=== PATIENT | female | born 1965 | race Caucasian/White ===

== ENCOUNTER 2019-11-05 19:01 | Emergency (ER) | payer BC, OTHER, SELFPAY ==
[2019-11-05 19:09] VITALS: BP 143/82; PULSE 50; RESP 18; TEMP 36.7; O2SAT 100
--- NOTE | 2019-11-05 19:37 | ED.GENADULT ---
HPI - General Adult General Chief complaint: Animal Bite Stated complaint: mouse bite Time Seen by Provider: 11/05/19 19:26 Source: patient Mode of arrival: ambulatory Limitations: no limitations History of Present Illness HPI narrative: 54-year-old female patient presents to the emergency department with complaints of a mouse bite to her left index finger. Patient states that she was in the barn tending to her horse and noticed that the mass had gotten into his bucket. Patient states that she tried to grab the mouse by the tail and it bit her through her glove. Patient states she has a small little bite on the left index finger. Denies any history of diabetes. Denies any chest pain, shortness of breath, fevers, body aches or chills. Patient unaware of when her last tetanus shot was. Related Data Home Medications Medication Instructions Recorded Confirmed gabapentin 300 mg PO BID 03/06/19 03/06/19 levetiracetam [Keppra] 1,000 mg PO BID 03/06/19 03/06/19 Allergies Allergy/AdvReac Type Severity Reaction Status Date / Time No Known Allergies Allergy Verified 11/05/19 19:12 Review of Systems Review of Systems: Narrative: CONSTITUTIONAL: Denies fever, chills, or sweats. EYES: Denies visual changes, redness, or discharge. ENT: Denies rhinorrhea, congestion, sore throat, or otalgia. CARDIOVASCULAR: Denies chest pain, palpitations, or edema. RESPIRATORY: Denies cough or dyspnea. GASTROINTESTINAL: Denies abdominal pain, nausea, vomiting, or diarrhea. GENITOURINARY: Denies dysuria or hematuria. SKIN: Denies rash or itching. Positive mouse bite to left index finger MUSCULOSKELETAL: Denies back pain, joint pain, or myalgia. NEUROLOGIC: Denies headache, numbness, or weakness. PSYCHIATRIC: Denies anxiety or depression. PMFSH Comments At the time of my signature I agree with nursing past medical history, surgical, social, and family history. There is no relevant family history pertinent to the presenting complaint. Exam Narrative: Exam Narrative: GENERAL: Well-appearing, well-nourished, and in no acute distress. HEAD: Normocephalic, atraumatic. EYES: PERRLA and EOMI. ENT: Nares clear, no rhinorrhea or epistaxis. Mucous membranes moist. NECK: Supple. No lymphadenopathy CHEST: Clear to auscultation. No respiratory distress. HEART: Regular rate and rhythm. No murmur heard. Normal peripheral pulses. ABDOMEN: Soft, nontender, nondistended, normal active bowel sounds. EXTREMITIES: Normal range of motion. No edema. SKIN: Warm, dry, no rash. Patient has very tiny pinpoint bite marialuisa noted to the left index finger, distal on the palm side. No open wounds or drainage. No swelling, no surrounding erythema. NEURO: No focal deficits. Alert and oriented x3. Course Vital Signs Vital signs: Vital Signs Temperature 36.7 C 11/05/19 19:09 Pulse Rate 50 L 11/05/19 19:09 Respiratory Rate 18 11/05/19 19:09 Blood Pressure 143/82 H 11/05/19 19:09 Pulse Oximetry 100 11/05/19 19:09 Temperature 36.7 C 11/05/19 19:09 Pulse Rate 50 L 11/05/19 19:09 Respiratory Rate 18 11/05/19 19:09 Blood Pressure 143/82 H 11/05/19 19:09 Pulse Oximetry 100 11/05/19 19:09 Vital signs reviewed. The patient has been informed that they may have pre-hypertension or Hypertension based on a BP reading in the department. I recommend that the patient call the primary care provider listed on their discharge instructions or a physician of their choice this week to arrange follow up for further evaluation of possible pre-hypertension or Hypertension Medical Decision Making Differential Diagnosis Differential Diagnosis: Differential diagnosis: Abscess, cellulitis, hidradenitis, laceration, puncture wound. Discussed with patient we will go ahead and update her tetanus shot today. According to up-to-date mouse are really low risk for rabies and therefore I do not think that we need to start prophylactics rabies shots today however we will disch
[2019-11-05] MEDS: AMOXICILLIN/CLAVULANATE K 875-125 MG TAB 1 TABLET PO (20:08)
[2019-11-05] MEDS: TETANUS,DIPHTHERIA,AC PERTUSSIS ADULT (0.5 ML) BOOSTRIX IM (20:08)
[2019-11-05 20:15] VITALS: BP 132/87; PULSE 56; RESP 18; O2SAT 99
== END 2019-11-05 20:16 | disposition home or self-care (01) ==
PROVIDERS: Emergency Provider Nurse Practitioner Family
DX: S61.251A Open bite of left index finger without damage to nail, initial encounter (principal); W53.01XA Bitten by mouse, initial encounter; Z23 Encounter for immunization; R03.0 Elevated blood-pressure reading, without diagnosis of hypertension
CPT/HCPCS: 90471; 90715; 99283; A9270

== ENCOUNTER 2019-12-09 22:35 | Emergency (ER) | payer BC, OTHER, SELFPAY ==
--- NOTE | ~2019-12-09 | XR_ITS ---
XR hip RT 2V w AP pelvis DATE: 12/09/2019 23:31 INDICATION: Right hip pain since fall 1.5 weeks ago TECHNIQUE: AP pelvis. AP, lateral views of right hip COMPARISON: None FINDINGS: Levoscoliosis and degenerative change of the lumbar spine. The pubic symphysis and sacroiliac joints are intact. No pelvic fracture or bone destruction. The hip joint spaces are symmetric and preserved. No fracture, dislocation, avascular necrosis or bone destruction of the right hip. There is a prominent amount of fecal material within the colon. No bowel obstruction. IMPRESSION: No significant abnormality of the pelvis or right hip Levoscoliosis and degenerative change of lumbar spine Reviewed, dictated and finalized at location A.
[2019-12-09 22:39] VITALS: BP 149/76; PULSE 61; RESP 18; TEMP 36.7; O2SAT 98
[2019-12-09 22:43] VITALS: BP 149/76; PULSE 63; RESP 18; O2SAT 99
--- NOTE | 2019-12-09 23:11 | ED.FALL ---
HPI - Fall General Chief Complaint: Fall Stated Complaint: fall week ago, continued pain Time Seen by Provider: 12/09/19 22:48 Source: patient Mode of arrival: ambulatory Limitations: no limitations History of Present Illness HPI Narrative: This patient is a 54 year old female who presents for evaluation of right buttock s/p fall. She states she fell 1.5 weeks ago. She fell onto her buttock. She states she has had pain to right posterior hip so she went to see her chiropractor yesterday. After he performed a manipulation , her pain seems worse. She is taking ibuprofe for her pain. She denies abdominal pain, nausea, vomiting, or fever. She has right leg weaknes from a previous stroke. Related Data Home Medications Medication Instructions Recorded Confirmed gabapentin 300 mg PO BID 03/06/19 03/06/19 levetiracetam [Keppra] 1,000 mg PO BID 03/06/19 03/06/19 Allergies Allergy/AdvReac Type Severity Reaction Status Date / Time No Known Allergies Allergy Verified 12/09/19 22:43 Review of Systems Review of Systems: All systems reviewed & are unremarkable except as noted in HPI and below Constitutional: Constitutional: Denies chills and Denies fever(s) [facility] Past Medical History Medical History (Updated 12/10/19 @ 00:38 by Taylor Krishnamurthy MD) Traumatic brain injury Social History Social History Gender identity (if verbalized by the patient): Female Sexual Orientation (if Verbalized by the Patient): Straight or Heterosexual Exam Const: General: no acute distress and alert Orientation/consciousness: patient oriented x3 HENMT: Head: normocephalic and atraumatic Face and sinus: face symmetric Eyes: EOM: EOMs intact bilaterally Resp: Effort & Inspection: normal respiratory effort Neuro: General: patient oriented x3 and moves all extremities Other: right foot droop from and right arm contracture from previous tbi/stroke. Extrem: Other: no bruising or swelling , FROM at hip. neurovascular intact Psych: Mental Status: mental status grossly normal Affect: normal affect Course Vital Signs Vital signs: Vital Signs Temperature 98.1 F 12/09/19 22:39 Pulse Rate 61 12/09/19 22:39 Respiratory Rate 18 12/09/19 22:39 Blood Pressure 149/76 H 12/09/19 22:39 Pulse Oximetry 98 12/09/19 22:39 Temperature 98.1 F 12/09/19 22:39 Pulse Rate 63 12/09/19 22:43 Respiratory Rate 18 12/09/19 22:43 Blood Pressure 149/76 H 12/09/19 22:43 Pulse Oximetry 99 12/09/19 22:43 MDM - Fall Imaging Data Radiologist's impression: ITS Impressions Hip/Pelvis X-Ray 12/09/19 23:42 IMPRESSION: No significant abnormality of the pelvis or right hip Levoscoliosis and degenerative change of lumbar spine Discharge Plan Discharge Clinical Impression: Acute pain of right hip Patient Disposition: Home, Self-Care Condition: Stable Instructions: Antibiotic Form, Hip Contusion (ED) Additional Instructions: Follow up with your primary care physician if your pain does not improve. Prescriptions: New naproxen 500 mg tablet 500 mg PO BID PRN (Reason: pain) Qty: 10 RF: 0 hydrocodone-acetaminophen [[place]] 5-325 mg tablet 1 tablet PO Q6H PRN (Reason: pain) Qty: 6 RF: 0 No Action gabapentin 300 mg Capsule 300 mg PO BID RF: 0 levetiracetam [Keppra] 1,000 mg Tablet 1,000 mg PO BID RF: 0 amoxicillin-pot clavulanate [Augmentin] 875-125 mg tablet 1 tablet PO Q12H 7 Days Qty: 14 RF: 0 Follow-up/Referrals: Johnna,Wilver Jacobs MD [Primary Care Provider] - Discharge Date/Time: 12/10/19 00:45
--- NOTE | 2019-12-09 23:18 | PC.NURSE ---
Report received from HEMANT Dumont. Assumed care of patient at this time.
--- NOTE | 2019-12-09 23:29 | PC.NURSE ---
Patient in radiology at this time.
== END 2019-12-10 00:45 | disposition home or self-care (01) ==
PROVIDERS: Emergency Provider General Practice; PCP Internal Medicine
DX: M25.551 Pain in right hip (principal); Z87.820 Personal history of traumatic brain injury
CPT/HCPCS: 73502; 99283

== ENCOUNTER 2019-12-29 12:34 | Outpatient (CLI) | payer BC, SELFPAY ==
--- NOTE | ~2019-12-29 | XR_ITS ---
EXAMINATION: SACRUM/COCCYX DATE: 12/29/2019 13:32 INDICATION: Low back pain TECHNIQUE: Three views sacrum/coccyx FINDINGS: No prior studies for comparison. There is no displaced fracture of the sacrum. The coccyx demonstrates overall normal morphology with out acute angulation. IMPRESSION: 1. No acute displaced osseous abnormality of the sacrum. Suspicion for occult or nondisplaced sacral fracture can either be evaluated with CT or MRI. 2. Grossly normal morphology to the coccyx without acute angulation. However, due to the wide range of normal variation of the coccyx, acute injury would be best evaluated by clinical examination and patient's symptoms. Reviewed, dictated and finalized at location A.
--- NOTE | ~2019-12-29 | XR_ITS ---
XR lumbar spine 2-3V 12/29/2019 13:32 Indication: Low back pain Procedure: 3 views lumbar spine Comparison: No prior studies for comparison. Findings: There is levoscoliosis. No acute fracture or traumatic malalignment. There is mild lower freida mbar facet hypertrophy. No evidence for spondylolisthesis. Sacral foramen are symmetric. Impression: 1: Mild lumbar spondylosis with levoscoliosis. Reviewed, dictated and finalized at location A. Impression: 1: Mild lumbar spondylosis with levoscoliosis.
--- NOTE | ~2019-12-29 | XR_ITS ---
XR pelvis 1-2V 12/29/2019 13:32 Indication: Pelvic pain after fall Procedure: AP pelvis Comparison: No prior studies for comparison. Findings: Pelvic rings are intact. No acute fracture or traumatic malalignment. Sacral foramen are sy mmetric. No soft tissue abnormality. Impression: 1: No acute fracture. Reviewed, dictated and finalized at location A. Impression: 1: No acute fracture.
== END 2019-12-29 12:35 ==
DX: R10.2 Pelvic and perineal pain (principal); M47.896 Other spondylosis, lumbar region
CPT/HCPCS: 72100; 72170; 72220

== ENCOUNTER 2020-03-04 13:36 | Emergency (ER) | payer BC, OTHER, SELFPAY ==
--- NOTE | ~2020-03-04 | US_ITS ---
EXAMINATION: US venous doppler [facility] DATE: 03/04/2020 15:24 INDICATION: Left groin pain. TECHNIQUE: Grayscale ultrasound images without and with compression and Doppler ultrasound images of the bilateral lower extremity veins were obtained. COMPARISON: None. FINDINGS: The visualized portions of right common femoral vein, profunda (deep) femoral vein, femoral vein, pop liteal vein, peroneal veins, posterior tibial veins, and greater saphenous vein outflow are patent. The visualized portions of left common femoral vein, profunda femoral vein, femoral vein, popliteal v ein, peroneal veins, posterior tibial veins, and greater saphenous vein outflow are patent. IMPRESSION: 1. No deep venous thrombosis. Reviewed, dictated and finalized at location A. LY DEVELOPMENT EXTENSION SPECIALIST
--- NOTE | ~2020-03-04 | XR_ITS ---
EXAMINATION: XR pelvis 1-2V DATE: 03/04/2020 16:19 INDICATION: Right groin pain. TECHNIQUE: A single view of the pelvis was obtained. COMPARISON: Pelvis radiograph 12/29/2019 FINDINGS: There is levoscoliosis and mild spondylosis of lumbar spine. No fracture. There is mild ost eoarthritis of the hips. IMPRESSION: 1. Mild osteoarthritis of the hips. Reviewed, dictated and finalized at location A. NICAL PRODUCER
[2020-03-04 13:39] VITALS: BP 124/89; PULSE 74; RESP 18; TEMP 36.3; O2SAT 99
[2020-03-04 14:46] LABS: Basophils Percent Auto 0.3 % (0.2-1.2); Eosinophils Absolute Auto 0.1 K/mm3 (0-0.3); Eosinophils Percent Auto 0.6 % (0-4.4); Hematocrit 39.4 % (37.0-47.0); Hemoglobin 12.9 g/dL (12.0-15.0); Immature Granulocyte Absolute 0.04 K/mm3 (0.00-0.031); Immature Granulocyte Percent A 0.4 % (0-0.5); Lymphocytes Absolute Auto 2.19 K/mm3 (0.9-3.2); Lymphocytes Percent Auto 24.4 % (18.3-44.2); Mean Corpuscular HGB Conc 32.7 g/dl (32-36); Mean Corpuscular Hemoglobin 29.7 pg (26-34); Mean Corpuscular Volume 90.8 fl (80-100); Monocytes Absolute Auto 0.6 K/mm3 (0.1-0.6); Neutrophils Percent Auto 67.3 % (45.5-73.1); Platelet Count Result 215 k/mm3 (150-375); Red Blood Count 4.34 M/mm3 (4.2-5.4); Red Cell Distribution Width 12.7 % (11.5-14.5)
[2020-03-04 14:49] LABS: Prothrombin Time 13.6 Seconds (11.1-14.7)
[2020-03-04 14:50] LABS: Partial Thromboplastin Time 25.5 SECONDS (22.3-36.8)
[2020-03-04 15:07] LABS: Anion Gap 7 mmol/L (8-16); Blood Urea Nitrogen 13 mg/dL (7-17); Calcium 9.5 mg/dL (8.4-10.2); Carbon Dioxide 31 mmol/L (22-30); Chloride 103 mmol/L (98-107); Estimated CRCL calculation 90 ml/min; Estimated Glomerular Filt Rate > 60; Glucose 94 mg/dL (65-105); Sodium 141 mmol/L (137-145)
[2020-03-04 15:12] LABS: Potassium 3.4 mmol/L (3.4-5.0)
[2020-03-04 16:26] VITALS: BP 150/94; PULSE 60; RESP 20; O2SAT 100
[2020-03-04 16:26] LABS: Add Urine Microscopic? YES; Appearance Urine Clear (Clear); Bacteria Urine Trace /hpf; Bilirubin Urine Negative (Negative); Blood Urine Negative (Negative); Color Urine Straw (Yellow); Glucose Urine UA Negative (Negative); Ketones Urine Negative (Negative); Leukocyte Esterase Ur Trace LEU/UL (Negative); Nitrate Urine Negative (Negative); Protein Urine Negative (Negative); RBC Urine 0-2 /hpf (0-2); Specific Grav Ur 1.012 (1.001-1.035); Squamous Epithelial Cell Urine Occasional /hpf (Few); Urobilinogen Urine Negative mg/dL (<2.0); WBC Urine 0-3 /hpf
--- NOTE | 2020-03-04 16:26 | ED.GENADULT ---
HPI - General Adult General Chief complaint: Extremity Injury, Lower <Kaushik Freeman PA-C - Last Filed: 03/04/20 16:31> Stated complaint: groin injury <Kaushik Freeman PA-C - Last Filed: 03/04/20 16:31> Time Seen by Provider: 03/04/20 13:41 <Kausihk Freeman PA-C - Last Filed: 03/04/20 16:31> Source: patient <LING Elmore Last Filed: 03/04/20 16:31> Mode of arrival: ambulatory <Kaushik Freeman PA-C - Last Filed: 03/04/20 16:31> Limitations: no limitations <Kaushik Freeman PA-C - Last Filed: 03/04/20 16:31> History of Present Illness HPI narrative: Patient is a 55-year-old female who presents to emergency department for evaluation of left inner groin pain for 2 weeks denies injury or trauma but does have physical requirements at home taking care of animals and a family member that could have potentially caused a strain pain has remained constant has remained in the same region does not radiate is worse with weightbearing and activity has not been seen for this complaint presents in no distress <Kaushik Freeman PA-C - Last Filed: 03/04/20 16:31> Related Data Home medications: Home Medications Medication Instructions Recorded Confirmed gabapentin 300 mg PO BID 03/06/19 03/06/19 levetiracetam [Keppra] 1,000 mg PO BID 03/06/19 03/06/19 cyclobenzaprine mg 03/04/20 methylprednisolone mg 03/04/20 <Kaushik Freeman PA-C - Last Filed: 03/04/20 16:31> Allergies/adverse reactions: Allergies Allergy/AdvReac Type Severity Reaction Status Date / Time No Known Allergies Allergy Verified 03/04/20 13:42 <Kaushik Freeman PA-C - Last Filed: 03/04/20 16:31> Review of Systems Review of Systems: All systems reviewed & are unremarkable except as noted in HPI and below <Kaushik Freeman PA-C - Last Filed: 03/04/20 16:31> PMFSH Past Medical History Medical History: Medical History Traumatic brain injury <Kaushik Freeman PA-C - Last Filed: 03/04/20 16:31> Social History Social History: Social History Gender identity (if verbalized by the patient): Female <Kaushik Freeman PA-C - Last Filed: 03/04/20 16:31> Exam Narrative: Exam Narrative: GENERAL: Well-appearing, well-nourished, and in no acute distress. HEAD: Normocephalic, atraumatic. EYES: PERRLA and EOMI. ENT: Nares clear, no rhinorrhea or epistaxis. Mucous membranes moist. CHEST: Clear to auscultation. No respiratory distress. No wheezes rales or rhonchi HEART: Regular rate and rhythm. No murmur heard. Normal peripheral pulses. ABDOMEN: Soft, nontender, nondistended EXTREMITIES: Normal range of motion. No edema. Tenderness of the left groin remainder of extremities nontender. No lumbar tenderness to palpation SKIN: Warm, dry, no rash. NEURO: No focal deficits. Alert and oriented x3. Neurovascularly intact. Cranial nerves II through XII grossly intact. Normal speech. Motor and sensory intact and symmetrical in the extremities. Chronic disability on the right side secondary to prior CVA PSYCH: Normal mood and affect. <Kaushik Freeman PA-C - Last Filed: 03/04/20 16:31> Course Course Emergency Course: Patient in the room in no distress was given medications in the ER had evaluation will be discharged home with plan follow-up with primary care and her orthopedist felt appropriate for outpatient reevaluation patient's evaluation included blood work and imaging <Kaushik Freeman PA-C - Last Filed: 03/04/20 16:31> Vital Signs Vital signs: Vital Signs Temperature 36.3 C L 03/04/20 13:39 Pulse Rate 74 03/04/20 13:39 Respiratory Rate 18 03/04/20 13:39 Blood Pressure 124/89 03/04/20 13:39 Pulse Oximetry 99 03/04/20 13:39 Temperature 36.3 C L 03/04/20 13:39 Pulse Rate 64 03/04/20 16:54 Respiratory Rate 20 03/04/20 16
[2020-03-04] MEDS: KETOROLAC 30 MG/ML VIAL (*BKC) IV PUSH (16:42)
[2020-03-04 16:54] VITALS: BP 150/94; PULSE 64; RESP 20; O2SAT 96
== END 2020-03-04 17:03 | disposition home or self-care (01) ==
PROVIDERS: Emergency Medicine Emergency Medical Services; Emergency Provider Emergency Medicine; PCP Internal Medicine
DX: R10.32 Left lower quadrant pain (principal); Z87.820 Personal history of traumatic brain injury; M79.605 Pain in left leg
CPT/HCPCS: 36415; 72170; 80048; 81001; 85025; 85610; 85730; 93970; 96374; 96375; 99284; J0131; J1885

== ENCOUNTER 2020-09-13 01:41 | Emergency (ER) | payer BC, OTHER, SELFPAY ==
--- NOTE | ~2020-09-13 | CT_ITS ---
EXAMINATION: CT pelvis wo con EXAM DATE: 09/13/2020 03:44 INDICATION: Fall, groin pain, possible new fracture. TECHNIQUE: Spiral CT pelvis wo con was performed without contrast. Axial, coronal and sagittal imag es were reviewed. The dose-length product (DLP) for this examination was 264.70 mGy-cm. The exposur e was tailored according to patient size (auto mA exposure control), and iterative reconstruction ( IR) was used as additional dose reduction technique. Correlation is made to x-ray same date. FINDINGS: Subacute left superior and inferior rami fractures, which may have delayed union. There is a left-sided sacral ala fracture without sclerosis, appearance most consistent with acute age. This is nondisplaced. Left acetabular bone island. There is mild sigmoid colonic diverticulosis. There is no adjacent inflammatory change to suggest diverticulitis. The uterus is not identified and has like ly been surgically resected. No pelvic lymphadenopathy. There is moderate thoracolumbar levoscoliosis . IMPRESSION: 1. Left sacral wing fracture, could be acute. 2. Subacute left rami fractures. Possible delayed union. Can't exclude reinjury to these. 3. Moderate thoracolumbar levoscoliosis. 4. Mild sigmoid diverticulosis. Reviewed, dictated and finalized at location A. IMPRESSION: 1. Left sacral wing fracture, could be acute. 2. Subacute left rami fractures. Possible delayed union. Can't exclude reinjur y to these. 3. Moderate thoracolumbar levoscoliosis. 4. Mild sigmoid diverticulosis.
--- NOTE | ~2020-09-13 | XR_ITS ---
EXAMINATION: [id number] EXAM DATE: 09/13/2020 03:03 INDICATION: Initial encounter following injury, with pain of the right ribs. TECHNIQUE: Frontal projection of the upper right ribs, frontal projection of the lower right ribs, ob lique projection of the right ribs, frontal chest x-ray(s) for interpretation. There is no prior tanna dy for comparison. FINDINGS: There are acute right 3rd and 4th rib fractures, possibly at the 5th rib as well. There is no pneumothorax suspected. There are no pleural effusions. Borderline heart size. No focal airspace d isease. Mild upper lumbar levoscoliosis. IMPRESSION: Acute right 3rd, 4th and possibly 5th rib fractures. Reviewed, dictated and finalized at location A.
--- NOTE | ~2020-09-13 | XR_ITS ---
EXAMINATION: XR hip LT 2V w AP pelvis EXAM DATE: 09/13/2020 03:03 INDICATION: Fall, anterior hip pain, previous pelvic fracture in February. TECHNIQUE: Left hip frontal, 'frog leg' projections for interpretation. Frontal projection pelvis. C omparison is made to prior examination from 03/02/2020. FINDINGS: Smooth left hip femoral head contour, no radiographic evidence of avascular necrosis. Sub acute fractures of the left superior and inferior rami, with mature appearing callus formation, heal ing response. Left femur appears intact. Left-sided nondisplaced sacral fracture seen on CT not well visualized, no discontinuity of the sacral arcuate lines. The soft tissue is unremarkable. There is m ild bilateral hip primary osteoarthritis. IMPRESSION: Subacute left superior, inferior rami fractures. Can't exclude reinjury. Reviewed, dictated and finalized at location A. IMPRESSION: Subacute left superior, inferior rami fractures. Can't exclude rein jury.
[2020-09-13 01:48] VITALS: BP 165/98; PULSE 69; RESP 18; TEMP 36.9; O2SAT 99
--- NOTE | 2020-09-13 02:32 | ED.FALL ---
HPI - Fall General Chief Complaint: Fall Stated Complaint: wants xray of pelvis SP fall Time Seen by Provider: 09/13/20 01:59 Source: patient, family and RN notes reviewed Mode of arrival: ambulatory Limitations: no limitations History of Present Illness HPI Narrative: This is a 55 year old female who presents for evaluation left groin pain s/p fall. Patient states tonight she accidentally fell onto gravel. She states she fell backwards onto her buttocks and back, but she denies LOC, headache, nausea or vomiting. She was able to get her self up but she reports left groin pain. She is concerned that she may have a pelvic fracture. She was diagnosed with a pelvic fracture 6 months ago and she is concerned she has broken her pelvis again. She also reports rib pain from another fall 3 nights ago. Related Data Home Medications Medication Instructions Recorded Confirmed gabapentin 300 mg PO BID 03/06/19 03/06/19 levetiracetam [Keppra] 1,000 mg PO BID 03/06/19 03/06/19 cyclobenzaprine mg 03/04/20 methylprednisolone mg 03/04/20 Allergies Allergy/AdvReac Type Severity Reaction Status Date / Time No Known Allergies Allergy Verified 09/13/20 01:43 Review of Systems Review of Systems: All systems reviewed & are unremarkable except as noted in HPI and below PMFSH Past Medical History Medical History (Updated 09/13/20 @ 06:13 by Taylor Krishnamurthy MD) Pelvic fracture Traumatic brain injury Surgical History Surgical History (Updated 09/13/20 @ 02:35 by Taylor Krishnamurthy MD) History of ankle surgery Social History Social History (Updated 09/13/20 @ 02:35 by Taylor Krishnamurthy MD) Smoking status: Never smoker Gender identity (if verbalized by the patient): Female Exam Const: General: alert Orientation/consciousness: patient oriented x3 Other: patient crying HENMT: Head: normocephalic and atraumatic Face and sinus: face symmetric Eyes: EOM: EOMs intact bilaterally Neck: Neck: normal visual inspection Chest: Chest palpation & inspection: tenderness rib (right lateral) Resp: Effort & Inspection: normal respiratory effort and no retractions Auscultation: clear to auscultation bilaterally Cardio: Rate: regular rate Rhythm: regular rhythm Heart sounds: no murmurs GI: GI Palp: Yes Soft to palpation, No Tenderness to palpation present (GI) and No Guarding due to palpation present (GI) Auscultation: normal bowel sounds Back/Spine/Pelvis: Cervical Spine: No Cervical spine tenderness Skin: General skin exam: normal color Rashes: no rashes Extrem: Other: pain to left groin with flexion, unable to completely flex right knee due to previous injuries. Psych: Mental Status: mental status grossly normal Affect: normal affect Course Consultations Consultation #1: I Discussed with Dr. Durán about patient CT imaging. HE states patient can be discharged home unless need more pain control. PAtient can partially weight bear and follow up as outpatient. He also recommends sending vitamin D level Date: 09/13/20 Time: 05:49 Vital Signs Vital signs: Vital Signs Temperature 98.4 F 09/13/20 01:48 Pulse Rate 69 09/13/20 01:48 Respiratory Rate 18 09/13/20 01:48 Blood Pressure 165/98 H 09/13/20 01:48 Pulse Oximetry 99 09/13/20 01:48 Temperature 98.0 F 09/13/20 06:44 Pulse Rate 64 09/13/20 06:44 Respiratory Rate 16 09/13/20 06:44 Blood Pressure 128/84 09/13/20 06:44 Pulse Oximetry 98 09/13/20 06:44 MDM - Fall Medical Records Attestation: I reviewed the patient's medical records. Lab Data Attestation: I reviewed the patient's lab results. Result diagrams: 09/13/20 03:20 09/13/20 03:20 Labs: Lab Results 09/13/20 09/13/20 09/13/20 Range/Units 03:20 03:20 06:35 WBC 8.2 (4.5-10.0) K/mm3 RBC 4.80 (4.2-5.4) M/mm3 Hgb 14.1 (12.0-15.0) g/dL Hct 42.9 (37.0-47.0) % MCV 89.4 (80-100) fl MCH 29.4 (26-
[2020-09-13] MEDS: MORPHINE SULFATE (*CRX) 4 MG/ML INJ IV PUSH (03:13)
[2020-09-13] MEDS: ONDANSETRON INJ 4 MG/2 ML VIAL IV PUSH (03:13)
[2020-09-13 03:51] LABS: Basophils Percent Auto 0.4 % (0.2-1.2); Eosinophils Absolute Auto 0.1 K/mm3 (0-0.3); Hematocrit 42.9 % (37.0-47.0); Hemoglobin 14.1 g/dL (12.0-15.0); Immature Granulocyte Absolute 0.02 K/mm3 (0.00-0.031); Immature Granulocyte Percent A 0.2 % (0-0.5); Lymphocytes Absolute Auto 2.73 K/mm3 (0.9-3.2); Lymphocytes Percent Auto 33.5 % (18.3-44.2); Mean Corpuscular HGB Conc 32.9 g/dl (32-36); Mean Corpuscular Hemoglobin 29.4 pg (26-34); Mean Corpuscular Volume 89.4 fl (80-100); Mean Platelet Volume 9.3 fl (7.4-10.4); Monocytes Absolute Auto 0.9 K/mm3 (0.1-0.6); Monocytes Percent Auto 10.8 % (2.6-8.5); Neutrophils Absolute Auto 4.4 K/mm3 (1.3-6.7); Neutrophils Percent Auto 54.1 % (45.5-73.1); Platelet Count Result 225 k/mm3 (150-375); Red Cell Distribution Width 12.3 % (11.5-14.5); White Blood Count 8.2 K/mm3 (4.5-10.0)
[2020-09-13 03:57] VITALS: BP 158/90; PULSE 62; RESP 20; O2SAT 98
[2020-09-13 04:01] LABS: Alanine Aminotransferase 17 U/L (4-35); Albumin Level 4.5 g/dL (3.5-5.1); Alkaline Phosphatase 72 U/L (38-126); Anion Gap 10 mmol/L (8-16); Aspartate Amino Transferase 26 U/L (14-36); Bilirubin,Total 0.4 mg/dL (0.2-1.3); Blood Urea Nitrogen 10 mg/dL (7-17); Calcium 9.9 mg/dL (8.4-10.2); Carbon Dioxide 29 mmol/L (22-30); Chloride 104 mmol/L (98-107); Estimated CRCL calculation 78 ml/min; Estimated Glomerular Filt Rate > 60; Glucose 99 mg/dL (65-105); Potassium 3.6 mmol/L (3.4-5.0); Sodium 143 mmol/L (137-145)
[2020-09-13] MEDS: HYDROmorphone HCL INJ (*CRX) 1 MG/ML SYR IV PUSH (04:03)
[2020-09-13 05:33] VITALS: BP 117/70; PULSE 62; RESP 20; O2SAT 96
[2020-09-13 06:44] VITALS: BP 128/84; PULSE 64; RESP 16; TEMP 36.7; O2SAT 98
[2020-09-13 07:54] LABS: Vitamin D 25 Hydroxy 63.8 ng/mL
== END 2020-09-13 06:45 | disposition home or self-care (01) ==
PROVIDERS: Emergency Provider General Practice; PCP Internal Medicine
DX: S32.592A Other specified fracture of left pubis, initial encounter for closed fracture (principal); S22.41XA Multiple fractures of ribs, right side, initial encounter for closed fracture; W01.0XXA Fall on same level from slipping, tripping and stumbling without subsequent striking against object, initial encounter
CPT/HCPCS: 36415; 71101; 72192; 73502; 80053; 82306; 85025; 96374; 96375; 99284; J1170; J2270; J2405

== ENCOUNTER 2021-02-28 00:07 | Inpatient (IN) | payer OTHER, SELFPAY ==
[2021-02-28] VITALS (19 sets, daily range): BP systolic 130–161; BP diastolic 68–94; PULSE 71–94; RESP 14–28; TEMP 36.1–37.2; O2SAT 92–100; BMI 24.3
--- NOTE | 2021-02-28 | ECHO_ITS ---
Patient Info Name: Bernadette Mckeon Age: 56 years : 1965 Gender: Female Ht: 68 in Wt: 160 lbs BSA: 1.87 m2 HR: 72 bpm BP: 152 / 75 mmHg Heart Rhythm: Sinus Rhythm Technical Quality: Good Exam Date: 02/28/2021 10:03 AM Exam Location: [facility] Pulmonary Exam Room: [facility] Patient Status: Inpatient Admit Date: 02/28/2021 Staff Ordering Physician: Kalyani Magallanes PA-C Child Care: Mai Sinclair RDCS Attending Provider: Kalyani Magallanes PA-C Referring Physician: Elpidio CHIN; Exam Type: CA echo doppler color flow Study Info Indications - cva rbbb Complete two-dimensional, color flow and Doppler transthoracic echocardiogram is performed. Summary 1. Complete two-dimensional, color flow and Doppler transthoracic echocardiogram is performed. 2. Left ventricular chamber dimension is normal. 3. Left ventricular systolic function is hyperdynamic, estimated at >70%. 4. There is no increased left ventricular wall thickness. 5. The left ventricular diastolic function is grade I diastolic dysfunction. 6. Left atrial chamber dimension is mildly enlarged. 7. There is trace tricuspid valve regurgitation. 8. No pulmonary hypertension, estimated pulmonary arterial systolic pressure is 29 mmHg. Left Ventricle Left ventricular chamber dimension is normal. Left ventricular systolic function is hyperdynamic, estimated at >70%. There is no increased left ventricular wall thickness. The left ventricular diastolic function is grade I diastolic dysfunction. Right Ventricle Right ventricular chamber dimension is normal. Right ventricular systolic function is normal. Left Atria Left atrial chamber dimension is mildly enlarged. Right Atria Right atrial chamber dimension is normal. Aortic Valve The aortic valve is not well visualized. There is no aortic valve stenosis. There is no aortic valve regurgitation. Pulmonic Valve The pulmonic valve is not well visualized. There is trace pulmonic regurgitation. Mitral Valve The mitral valve has normal leaflets. There is no mitral valve regurgitation. Tricuspid Valve The tricuspid valve leaflets are normal. There is trace tricuspid valve regurgitation. No pulmonary hypertension, estimated pulmonary arterial systolic pressure is 29 mmHg. Pericardium/Pleural The pericardium appears normal. There is no pericardial effusion. Inferior Vena Cava Normal inferior vena cava with >50% collapse upon inspiration consistent with normal right atrial pressure, 5 mmHg. Aorta The aortic root size at the sinus of Valsalva is normal. Left Ventricular Outflow Tract Name Value Normal LVOT 2D LVOT Diameter 2.0 cm LVOT Doppler LVOT Peak Gradient 5 mmHg LVOT Mean Gradient 2 mmHg LVOT VTI 21 cm LVOT VTI/AV VTI Ratio 0.8 LVOT Stroke Volume 64 ml LVOT CO 13.5 l/min LVOT CI 7.2 l/min/m2 Pulmonic Valve
--- NOTE | ~2021-02-28 | CT_ITS ---
EXAMINATION: CT abdomen pelvis wo con DATE: 03/02/2021 12:55 INDICATION: Urinary retention, hip fracture TECHNIQUE: Computed tomography (CT) of the abdomen and pelvis was performed without intravenous contr ast. The dose-length product (DLP) was 551.30 mGy-cm. Automated exposure control and iterative recons truction technique were employed. COMPARISON: 09/13/2020 FINDINGS: Minimal dependent atelectasis is present in the lung bases. The heart size is normal. Bilat eral breast implants are noted. The liver, spleen, pancreas, gallbladder, and adrenal glands appear n ormal. The kidneys are unremarkable. No pathologically enlarged abdominal or pelvic lymph nodes are i dentified. There is no free intraperitoneal gas or evidence of bowel obstruction. The appendix is nor mal. A moderate volume of colonic stool is present. There is lumbar levocurvature and mild spondylosi s. A fat-containing umbilical hernia is noted. There are changes of right total hip arthroplasty. Gas and low-attenuation fluid in the soft tissues of the right hip region are consistent with surgical c hange. Healing fractures of the left inferior and superior pubic rami are noted. IMPRESSION: 1. Expected postsurgical changes from right total hip arthroplasty. 2. Old fractures of the left inferior and superior pubic rami. Reviewed, dictated and finalized at location A. TIVE PROJECT MANAGER
--- NOTE | ~2021-02-28 | XR_ITS ---
EXAMINATION: XR chest 1V portable EXAM DATE: 02/28/2021 01:35 INDICATION: Preoperative. TECHNIQUE: Portable AP frontal chest x-ray was obtained. Comparison is made to prior examination from 03/06/2019. FINDINGS: The lungs are clear. There are no pleural effusions. Cardiomediastinal silhouette is norm al. There is no pneumothorax suspected. Moderate thoracolumbar levoscoliosis. IMPRESSION: No acute cardiopulmonary findings. Reviewed, dictated and finalized at location A. DEVELOPER
--- NOTE | ~2021-02-28 | XR_ITS ---
EXAMINATION: XR hip RT min 2V DATE: 03/05/2021 13:57 INDICATION: External rotation of the right hip post surgery TECHNIQUE: Anteroposterior and frog-leg lateral views of the right hip were obtained. COMPARISON: None. FINDINGS: Noncemented right total hip arthroplasty which appears well seated in near-anatomic alignment. The ac etabular component is affixed with a single screw. There is an unchanged small bone fragment along th e anterior margin of the calcar. No new fractures identified. Prominent callus formation about chroni c healing fractures of the left superior and inferior pubic rami. IMPRESSION: 1. Right total hip arthroplasty which appears well seated in near-anatomic alignment. 2. Chronic healing fractures of the left superior and inferior pubic rami. Reviewed, dictated and finalized at location A. E WORKER HELPER IMPRESSION: 1. Right total hip arthroplasty which appears well seated in near-anatomic alig nment. 2. Chronic healing fractures of the left superior and inferior pubic rami.
--- NOTE | ~2021-02-28 | CT_ITS ---
EXAMINATION: CT cervical spine wo con DATE: 02/28/2021 16:41 INDICATION: Neck injury. TECHNIQUE: Computed tomography (CT) of the cervical spine was performed without intravenous contrast. Automated exposure control and iterative reconstruction technique were employed. The dose-length pro duct was 274.71 mGy-cm. COMPARISON: None FINDINGS: There is 13 degrees levoscoliosis of cervicothoracic spine. There is 2 mm anterolisthesis o f C3 on C4 and C4 on C5 and C7 on T1. There is a mild chronic height loss of T2-T4 vertebral bodies. There is moderately decreased disc height at C4-C5 and severely decreased disc height at C5-C6 and C6 -C7. The following disc levels are specifically discussed: C2-C3: There is no uncovertebral joint osteoarthritis. There is mild bilateral facet joint osteoarthr itis. There is no neural foraminal stenosis. There is no central canal stenosis. C3-C4: There is mild bilateral uncovertebral joint osteoarthritis. There is mild right and severe lef t facet joint osteoarthritis. There is mild left neural foraminal stenosis. There is mild central can al stenosis. C4-C5: There is severe right and moderate left uncovertebral joint osteoarthritis. There is severe ri ght and mild left facet joint osteoarthritis. There is moderate right neural foraminal stenosis. Ther e is mild central canal stenosis. C5-C6: There is severe bilateral uncovertebral joint osteoarthritis. There is severe right and modera te left facet joint osteoarthritis. There is moderate right and mild left neural foraminal stenosis. There is mild central canal stenosis. C6-C7: There is severe bilateral uncovertebral joint osteoarthritis. There is moderate bilateral face t joint osteoarthritis. There is mild bilateral neural foraminal stenosis. There is mild central sarah l stenosis. C7-T1: There is no uncovertebral joint osteoarthritis. There is severe bilateral facet joint osteoart hritis. There is mild bilateral neural foraminal stenosis. There is no central canal stenosis. IMPRESSION: 1. No acute fracture. 2. Severe cervical spondylosis. Reviewed, dictated and finalized at location B. EN CLEANER
--- NOTE | ~2021-02-28 | XR_ITS ---
EXAMINATION: XR hip RT 2V w AP pelvis EXAM DATE: 02/28/2021 01:35 INDICATION: Fall, right hip pain. TECHNIQUE: Right hip frontal, crosstable lateral projections for interpretation. Frontal projection p nichole. Correlation is made to pelvic x-ray 09/13/2020. FINDINGS: There is acute closed posttraumatic right hip subcapital femoral neck fracture with superio r displacement, impaction. No dislocation. There are subacute left superior, inferior rami fractures . Sacrum, sacroiliac joints, sacral arcuate lines are intact. IMPRESSION: 1. Acute right subcapital femoral neck fracture, impaction. 2. Subacute left superior, inferior rami fractures. Reviewed, dictated and finalized at location A. ETTER MECHANIC AUTOMATIC
--- NOTE | ~2021-02-28 | CT_ITS ---
EXAMINATION: CT brain wo con DATE: 02/28/2021 17:54 INDICATION: Status post fall. Headache. TECHNIQUE: Computed tomography (CT) of the head was performed without intravenous contrast. The dose- length product was 605.33 mGy-cm. Automated exposure control and iterative reconstruction technique w ere employed. COMPARISON: No prior studies for comparison. FINDINGS: There is a large chronic left lacunar infarction with encephalomalacia. No acute intracrani al hemorrhage, infarction, mass or mass effect. No ventriculomegaly or midline shift. Mild generalize d atrophy. Paranasal sinuses and mastoids are pneumatized. No depressed skull fractures. IMPRESSION: 1. No acute intracranial abnormality. 2: Large chronic left lacunar infarction. Reviewed, dictated and finalized at location A. LE SCHOOL SPECIAL EDUCATION TEACHER
--- NOTE | ~2021-02-28 | CT_ITS ---
EXAMINATION: CTA chest PE protocol DATE: 03/02/2021 12:55 INDICATION: Pleuritic chest pain TECHNIQUE: Computed tomography angiography (CTA) of the chest was performed with 100 mL Omnipaque-350 intravenous contrast timed to evaluate the pulmonary arteries. Coronal maximum intensity projection 3D-reconstructions were created by the technologist. The dose-length product (DLP) was 262.94 mGy-cm. Automated exposure control and iterative reconstruction technique were employed. COMPARISON: None. FINDINGS: The pulmonary arteries are well-opacified. No pulmonary embolism is identified. There is mi ld atelectasis of the lungs. A 3 mm nodule is noted in the right upper lobe. No pleural effusion or p neumothorax is identified. There are bilateral breast implants. No pathologically enlarged thoracic l ymph nodes are identified. The heart size is normal. There is mild thoracic spondylosis. IMPRESSION: 1. No pulmonary embolism. Mild atelectasis. Reviewed, dictated and finalized at location A. FICIAL TEETH INSPECTOR
--- NOTE | ~2021-02-28 | XR_ITS ---
EXAMINATION: XR chest 1V portable 03/01/2021 19:27 INDICATION: Chest pain PROCEDURE: AP portable chest COMPARISON: 02/28/2021 FINDINGS: The lungs are clear. The cardiomediastinal silhouette is within normal limits. There are no pleural effusions. There is no pneumothorax suspected. There are multiple chronic right rib frac tures IMPRESSION: 1: NO ACUTE CARDIOPULMONARY DISEASE. Reviewed, dictated and finalized at location A. AL FITTER
--- NOTE | ~2021-02-28 | XR_ITS ---
EXAMINATION: XR hip RT min 2V DATE: 02/28/2021 15:31 INDICATION: Total right hip arthroplasty. Postop. TECHNIQUE: 2 views of right hip were obtained. COMPARISON: Pelvis and right hip radiographs 02/28/2021, pelvis radiograph 09/13/2020 FINDINGS: There is a total right hip arthroplasty in near-anatomic alignment. No fracture. There are old fractures of left superior and inferior pubic rami. There is gas in the soft tissues around right hip, consistent with recent surgery. IMPRESSION: 1. Total right hip arthroplasty in near-anatomic alignment. Reviewed, dictated and finalized at location B. L BRAKE FORM OPERATOR
--- NOTE | ~2021-02-28 | XR_ITS ---
XR abdomen/kub 1V 03/04/2021 12:39 INDICATION: Ileus TECHNIQUE: KUB COMPARISON: None FINDINGS: Bowel gas pattern is normal. There is no evidence of free air, mass, organomegaly, ascites or obstruction. No abnormal calculi are seen. Large amount of retained fecal material in the colon or rectum. There is a catheter overlying the pelvis. There are healed left inferior and pubic rami fr actures. There is levoscoliosis. There is a right total hip arthroplasty. IMPRESSION: 1: No acute abdominal abnormality identified. Reviewed, dictated and finalized at location A. K CARRIER
--- NOTE | ~2021-02-28 | US_ITS ---
EXAMINATION: US venous doppler [facility] DATE: 03/02/2021 11:14 INDICATION: Lower limb swelling TECHNIQUE: Hughes scale images without and with compression and Doppler images of the bilateral lower e xtremity veins were obtained. COMPARISON: 03/04/2020 FINDINGS: The right common femoral vein, profunda femoral vein, femoral vein, popliteal vein, peroneal trunk, p osterior tibial veins, and greater saphenous vein are patent. The left common femoral vein, profunda femoral vein, femoral vein, popliteal vein, peroneal trunk, po sterior tibial veins, and greater saphenous vein are patent. IMPRESSION: 1. Patent bilateral lower extremity veins. No evidence of deep venous thrombosis. Reviewed, dictated and finalized at location A. OR ANALYTICAL CHEMIST IMPRESSION: 1. Patent bilateral lower extremity veins. No evidence of deep venous thrombosi s.
--- NOTE | 2021-02-28 00:48 | ECG_ITS ---
Measurements Intervals [place] Rate: 73 P: 66 WV: 141 QRS: 12 QRSD: 93 T: 44 QT: 356 QTc: 393 Interpretive Statements SINUS RHYTHM POSSIBLE LEFT ATRIAL ENLARGEMENT INCOMPLETE RIGHT BUNDLE BRANCH BLOCK BASELINE ARTIFACT- I, II, AVR, AVL, AVF, V3-V6 BORDERLINE ECG Electronically Signed On 02-28-2021 6:45:24 TRANSPORT ASSISTANT by Sina Norman D.O.
[2021-02-28] MEDS: LACTATED RINGERS 1,000 ML 150 ML IV CONT (00:57)
[2021-02-28] MEDS: MORPHINE SULFATE (*CRX) 4 MG/ML INJ IV PUSH (00:58)
[2021-02-28 01:08] LABS: Basophils Percent Auto 0.4 % (0.2-1.2); Eosinophils Absolute Auto 0.1 K/mm3 (0-0.3); Eosinophils Percent Auto 1.4 % (0-4.4); Hemoglobin 13.4 g/dL (12.0-15.0); Immature Granulocyte Absolute 0.05 K/mm3 (0.00-0.031); Immature Granulocyte Percent A 0.5 % (0-0.5); Lymphocytes Absolute Auto 3.45 K/mm3 (0.9-3.2); Lymphocytes Percent Auto 36.4 % (18.3-44.2); Mean Corpuscular HGB Conc 34.4 g/dl (32-36); Mean Corpuscular Hemoglobin 30.5 pg (26-34); Mean Corpuscular Volume 88.8 fl (80-100); Mean Platelet Volume 9.6 fl (7.4-10.4); Monocytes Absolute Auto 0.9 K/mm3 (0.1-0.6); Monocytes Percent Auto 9.3 % (2.6-8.5); Neutrophils Absolute Auto 4.9 K/mm3 (1.3-6.7); Platelet Count Result 243 k/mm3 (150-375); Red Blood Count 4.39 M/mm3 (4.2-5.4); Red Cell Distribution Width 12.3 % (11.5-14.5); White Blood Count 9.5 K/mm3 (4.5-10.0)
[2021-02-28 01:24] LABS: Anion Gap 8 mmol/L (8-16); Blood Urea Nitrogen 14 mg/dL (7-17); Calcium 9.3 mg/dL (8.4-10.2); Carbon Dioxide 29 mmol/L (22-30); Chloride 104 mmol/L (98-107); Estimated CRCL calculation 77 ml/min; Estimated Glomerular Filt Rate > 60; Glucose 123 mg/dL (65-110); Potassium 3.6 mmol/L (3.4-5.0); Sodium 141 mmol/L (137-145)
[2021-02-28 01:29] LABS: INR 0.9; Prothrombin Time 12.4 Seconds (11.1-14.7)
--- NOTE | 2021-02-28 02:06 | ED.LOWEXIN ---
HPI - Extremity Injury (Lower) General Chief Complaint: Extremity Injury, Lower Stated Complaint: glf - rt hip pain, laid outside for 45 min Time Seen by Provider: 02/28/21 00:17 Source: patient Mode of arrival: EMS Limitations: clinical condition History of Present Illness HPI Narrative: 56-year-old female Here for hip injury Patient was trying to close a sticky barn door and when she gave it again she lost her footing and fell onto her right hip and was unable to get up off of the ground for several minutes until somebody located her and called EMS No other injuries and she did not have any other symptoms prior to falling Her main past history is that she has chronic left arm and shoulder pain which is the sequelae of some kind of an operation to remove what sounds like it might have been nerve ganglion or something done 8 or 10 years ago elsewhere As an aside because of this she has to use a walker, not crutches Related Data Home Medications Medication Instructions Recorded Confirmed gabapentin 300 mg PO BID 03/06/19 03/06/19 levetiracetam [Keppra] 1,000 mg PO BID 03/06/19 03/06/19 cyclobenzaprine mg 03/04/20 methylprednisolone mg 03/04/20 Allergies Allergy/AdvReac Type Severity Reaction Status Date / Time No Known Allergies Allergy Verified 09/13/20 01:43 Review of Systems Review of Systems: All systems reviewed & are unremarkable except as noted in HPI and below Constitutional: Constitutional: Reports no additional constitutional complaints, Denies chills, Denies fever(s) and Denies headache(s) Eyes: Eyes: Reports no additional eye complaints and Denies change in vision ENT: Denies headache(s) and Denies sore throat Cardiovascular: Cardiovascular: Denies chest pain and Denies dyspnea Respiratory: Respiratory: Denies cough and Denies dyspnea Gastrointestinal: Gastrointestinal: Denies abdominal pain, Denies diarrhea and Denies vomiting Genitourinary: Genitourinary: Denies urinary frequency and Denies dysuria Musculoskeletal: Musculoskeletal: Reports as per HPI, Reports myalgias, Denies deformity, Reports arthralgias, Reports joint swelling and Denies numbness Integumentary/Breasts: Skin/Breast: Denies rash and Denies wounds Neurologic: Denies headache(s), Denies focal weakness and Denies numbness Psychiatric: Psychiatric: Reports no additional psychiatric complaints Endocrine: Endocrine: Reports no additional endocrine complaints Hematologic/Lymphatic: Hematologic/Lymphatic: Reports no additional hematologic/lymphatic complaints Allergic/Immunologic: Allergic/Immunologic: Reports no additional allergic/immunologic complaints [facility] Past Medical History Medical History Pelvic fracture Traumatic brain injury Surgical History Surgical History History of ankle surgery Social History Social History Smoking status: Never smoker Gender identity (if verbalized by the patient): Female Sexual Orientation (if Verbalized by the Patient): Straight or Heterosexual Exam Const: General: cooperative and alert Orientation/consciousness: patient oriented x3 (alert) HENMT: Head: normal to inspection, normocephalic, atraumatic, no contusions, no hematomas and no lacerations Ears: external ears normal General nose exam: no epistaxis Eyes: Conjunctivae: conjunctivae normal EOM: EOMs intact bilaterally Neck: Neck: normal visual inspection, supple and no JVD Resp: Effort & Inspection: normal respiratory effort and not labored Auscultation: clear to auscultation bilaterally and other (BS =) Cardio: Rate: regular rate Rhythm: regular rhythm Heart sounds: no murmurs GI: GI Palp: Yes Soft to palpation and No Tenderness to palpation present (GI) Skin: General skin exam: normal color and no rashes or lesions noted Neuro: General: patien
[2021-02-28] MEDS: HYDROmorphone HCL INJ (*CRX) 1 MG/ML SYR IM (02:25)
[2021-02-28] MEDS: HYDROmorphone HCL INJ (*CRX) 1 MG/ML SYR 0.5 MG IV PUSH ×3 (04:52→11:44)
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
[2021-02-28] MEDS: levETIRAcetam 500 MG TABLET 1000 MG PO ×2 (10:30→21:00)
[2021-02-28] MEDS: TRANEXAMIC ACID 1,000MG/ISO100 1,000 MG/100 ML BAG 200 MG IVPB (11:16)
--- OUTSIDE RECORDS SUMMARY | 2021-02-28 11:26 | XMS_ITS | Encounter Summary ---
:1965 Author Care Team Providers Name Role Phone Dr. Wilver Oropeza Primary Care Provider [phone] Dr. Wilver Oropeza Referring Provider [phone] Reason for Visit Sleep apnea Assessment and Plan 1. Sleep apnea Titration in lab to best press ure of 8 with lowest desaturation 94%. Download today with 70% compliance with use greater than 4 hours. Remains on CPAP 8cm. AHI is 5.1. ESS 9 She has good compliance and benefit. Continue current settings. Discussed supply cleaning and reordering , order for new supplies today SHe is aware of reportable signs and sym ptoms. Encouraged 100% compliance with all slee p. Discussed the risks of uncorrected ZION, including . Discussed weight monitoring RTO in 1 year, PRN for concerns. ? CPAP supplies Discussion Note: None recorded.Patient educational handouts: No information available. Plan of Care Reminders Provider Appointments Established Yolanda jesús Soriano, Patient 29 12/28/2021 BIOLOGY LABORATORY ASSISTANT-BC 11:00AM Lab None recorded. ? ? Referral None recorded. ? ? Procedures None recorded. ? ? Surgeries None recorded. ? ?
--- OUTSIDE RECORDS SUMMARY | 2021-02-28 11:26 | XMS_ITS ---
:1965 Author Care Team Providers Name Role Phone DR. JANNY STEWART Primary Care Provider [phone] DR. JANNY STEWART Referring Provider [phone] Allergies Code Code System Name Reaction Severity Status Onset 795231 RxNorm Venom-tom Hives ? Active ? y Bee Medications Name Status Start Date Stop Date ? ? acetaminophen ER 650 mg tablet,extended release Active ? Not available TK 1 T PO Q 8 H FEV OR PAIN alprazolam 0.25 mg tablet Unknown 02/16/2013 Not av ailable Take 1 tablet every day by oral route for 15 days. amoxicillin 500 mg capsule Completed ? 10/11 amoxicillin 500 mg tablet Completed ? 2019 Take 1 tablet 3 times a day by oral route for 7 days. amoxicillin 875 mg-potassium Completed ? clavulanate 125 mg tablet azithromycin 250 mg tablet Unknown ? Not a vailable benzonatate 100 mg capsule Completed ? 07/10 Take 1 capsule 3 times a day by oral route as needed. cephalexin 500 mg capsule Completed ? 2016 ciprofloxacin 500 mg tablet Completed ? 03/08 cyclobenzaprine 10 mg tablet Active ? Not available TK 1 T PO Q 8 H PRN dicyclomine 20 mg tablet Completed ? 016 fluconazole 150 mg tablet Unknown ? Not av ailable gabapentin Completed 03/23/2020 06/05/2020 gabapentin 100 mg capsule Unknown ? Not av ailable gabapentin 300 mg capsule Active ? Not av ailable gabapentin 600 mg tablet Unknown ? Not germain ilable Gavilyte-C 240 gram-22.72 Comp
--- OUTSIDE RECORDS SUMMARY | 2021-02-28 11:27 | XMS_ITS ---
:1965 Author Care Team Providers Name Role Phone DR. JANNY STEWART Primary Care Provider [phone] DR. JANNY STEWART Referring Provider [phone] DR. JANNY STEWART Referring Provider [phone] Allergies Code Code System Name Reaction Severity Status Onset NKDA ? Medications Name Status Start Date Stop Date ? ? acetaminophen ER 650 mg tablet,extended release Active ? Not available TK 1 T PO Q 8 H FEV OR PAIN amoxicillin 500 mg capsule Active ? Not a vailable amoxicillin 875 mg-potassium Active ? Not available clavulanate 125 mg tablet azithromycin 250 mg tablet Unknown ? Not a vailable cephalexin 500 mg capsule Completed ? 2017 ciprofloxacin 500 mg tablet Unknown ? Not available cyclobenzaprine 10 mg tablet Active ? Not available TK 1 T PO Q 8 H PRN dicyclomine 20 mg tablet Active ? Not germain ilable gabapentin 300 mg capsule Active ? Not av ailable Gavilyte-C 240 gram-22.72 gram-6.72 Active ? Not available gram-5.84 gram oral solution hydrocodone 5 mg-acetaminophen 325 mg Active ? Not available tablet hyoscyamine 0.125 mg sublingual tablet Active ? Not available levetiracetam 500 mg tablet Active ? Not available meloxicam 7.5 mg tablet Active ? Not avai lable methocarbamol 750 mg tablet Active ? Not available TK 1 T PO TID methylprednisolone 4 mg tablets in a dose pack Active ? Not available FPD
--- OUTSIDE RECORDS SUMMARY | 2021-02-28 11:27 | XMS_ITS ---
:1965 Author Care Team Providers Name Role Phone DR. JANNY STEWART Primary Care Provider [phone] DR. JANNY STEWART Referring Provider [phone] DR. JANNY STEWART Referring Provider [phone] Allergies Code Code System Name Reaction Severity Status Onset NKDA ? Medications Name Status Start Date Stop Date ? ? acetaminophen ER 650 mg tablet,extended release Active ? Not available TK 1 T PO Q 8 H FEV OR PAIN cyclobenzaprine 10 mg tablet Active ? Not available TK 1 T PO Q 8 H PRN gabapentin Active ? Not available hydrocodone 10 mg-acetaminophen 300 mg tablet Active ? Not available Take 1 tablet every 6 hours by oral route. methocarbamol 750 mg tablet Active ? Not available TK 1 T PO TID methylprednisolone 4 mg tablets in a dose pack Active ? Not available FPD Problems No Known Problems Procedures None recorded. Results Lab Results None recorded. Past Encounters 03/23/2020 Obstructive Sleep Apnea Syndrome Nida Soriano, CELLULAR EQUIPMENT REPAIRER-BC: [address], [place] [address], Ph. Social History Tobacco Smoking Status Former Smoker (1/4 pack per Notes: quit 2010 less than day) a 1/4 Vaccine List None recorded. Plan of Care Reminders Provider Appointments None ? ? recorded.
--- OUTSIDE RECORDS SUMMARY | 2021-02-28 11:27 | XMS_ITS ---
:1965 Author Care Team Providers Name Role Phone DR. JANNY STEWART Primary Care Provider [phone] DR. JANNY STEWART Referring Provider [phone] DR. JANNY STEWART Referring Provider [phone] Allergies Code Code System Name Reaction Severity Status Onset 792617 RxNorm Venom-tom Hives ? Active ? y Bee Medications Name Status Start Date Stop Date ? ? acetaminophen ER 650 mg tablet,extended release Completed ? 04/21/2020 TK 1 T PO Q 8 H FEV OR PAIN alprazolam 0.25 mg tablet Unknown ? Not av ailable Take 1 tablet every [...] Completed ? 03/08 cyclobenzaprine 10 mg tablet Completed ? 05/2019 TK 1 T PO Q 8 H PRN dicyclomine 20 mg tablet Completed ? 016 fluconazole 150 mg tablet Unknown ? Not av ailable gabapentin 100 mg capsule Unknown ? Not av ailable gabapentin 300 mg capsule Active ? Not av ailable gabapentin 600 mg tablet Unknown ? Not germain ilable Gavilyte-C 240 gram-22.72 gram-6.72 Completed ? 04/13/2019
--- NOTE | 2021-02-28 11:29 | WPDANESEPPF ---
Anes - Initial Pre Proc Eval Procedure: Operation Date: 02/28/21 12:00 Proposed Procedures p Right Total Hip Arthroplasty - Cecil Clayton MD Date/Time: 02/28/21 11:29 Surgeon: Kalyani Magallanes PA-C Pre Op Diagnosis: Right Hip Fracture Patient Data Age: 56 Gender: F Height: 1.73 m Weight: 72.7 kg Last Vital Signs Temp 37.0 C 02/28/21 11:07 Pulse 78 02/28/21 11:07 Resp 16 02/28/21 11:07 BP 142/75 H 02/28/21 11:07 Pulse Ox 100 02/28/21 11:07 Allergies Allergy/AdvReac Type Severity Reaction Status Date / Time No Known Allergies Allergy Verified 02/28/21 04:04 Home Medications Medication Instructions Recorded Confirmed Type gabapentin 300 mg PO HS 03/06/19 02/28/21 History levetiracetam [Keppra] 1,000 mg PO BID 03/06/19 02/28/21 History Caltrate 600 plus D 600 mg BID 02/28/21 02/28/21 History tramadol 50 mg Q6H PRN 02/28/21 02/28/21 History Laboratory Tests 02/28/21 02/28/21 02/28/21 01:01 01:01 01:01 WBC 9.5 K/mm3 K/mm3 (4.5-10.0) RBC 4.39 M/mm3 M/mm3 (4.2-5.4) Hgb 13.4 g/dL g/dL (12.0-15.0) Hct 39.0 % % (37.0-47.0) MCV 88.8 fl fl (80-100) MCH 30.5 pg pg (26-34) MCHC 34.4 g/dl g/dl (32-36) RDW 12.3 % % (11.5-14.5) Plt Count 243 k/mm3 k/mm3 (150-375) MPV 9.6 fl fl (7.4-10.4) Immature Gran % (Auto) 0.5 % % (0-0.5) Neut % (Auto) 52.0 % % (45.5-73.1) Lymph % (Auto) 36.4 % % (18.3-44.2) [place] % (Auto) 9.3 % H % (2.6-8.5) Eos % (Auto) 1.4 % % (0-4.4) Baso % (Auto) 0.4 % % (0.2-1.2) Lymph # (Auto) 3.45 K/mm3 H K/mm3 (0.9-3.2) [place] # (Auto) 0.9 K/mm3 H K/mm3 (0.1-0.6) Eos # (Auto) 0.1 K/mm3 K/mm3 (0-0.3) Baso # (Auto) 0.0 K/mm3 K/mm3 (0.0-0.1) Abs Immat Gran (auto) 0.05 K/mm3 H K/mm3 (0.00-0.031) Absolute Neuts (auto) 4.9 K/mm3 K/mm3 (1.3-6.7) Absolute Nucleated RBC 0.0 K/mm3 K/mm3 (0.0-0.012) Nucleated RBC % 0.0 % % (0.0-0.2) PT 12.4 Seconds Seconds (11.1-14.7) INR 0.9 Sodium 141 mmol/L mmol/L (137-145) Potassium 3.6 mmol/L mmol/L (3.4-5.0) Chloride 104 mmol/L mmol/L (98-107) Carbon Dioxide 29 mmol/L mmol/L (22-30) Anion Gap 8 mmol/L mmol/L (8-16) BUN 14 mg/dL mg/dL (7-17) Creatinine 0.70 mg/dL mg/dL (0.7-1.0) Estim Creat Clear Calc 77 ml/min ml/min Estimated GFR > 60 (59 - ) Glucose 123 mg/dL H mg/dL (65-110) Calcium 9.3 mg/dL mg/dL (8.4-10.2) Blood Type Antibody Screen 02/28/21 01:06 WBC RBC Hgb Hct MCV MCH MCHC RDW Plt Count MPV Immature Gran % (Auto) Neut % (Auto) Lymph % (Auto) [place] % (Auto) Eos % (Auto) Baso % (Auto) Lymph # (Auto) [place] # (Auto) Eos # (Auto) Baso # (Auto) Abs Immat Gran (auto) Absolute Neuts (auto) Absolute Nucleated RBC Nucleated RBC % PT INR Sodium Potassium Chloride Carbon Dioxide Anion Gap BUN Creatinine Estim Creat Clear Calc Estimated GFR Glucose Calcium Blood Type A Positive Antibody Screen Negative Patient hx anesthesia problems: post op nausea/vomiting Family hx anesthesia problems: none Results Review: All pre-operative results and documents have been reviewed as part of the pre-operative evaluation. [facility] Past Medical History Medical History History of stroke Due to CVA at age 17 with right-sided weakness Neurological tumor Patient states she had a left-sided neuro t
[2021-02-28] MEDS: LACTATED RINGERS 1,000 ML 30 ML IV CONT (11:44)
[2021-02-28] MEDS: SCOPOLAMINE 1.5 MG PATCH TRANSDERM (11:45)
[2021-02-28] MEDS: ONDANSETRON INJ 4 MG/2 ML VIAL IV PUSH (11:51)
--- NOTE | 2021-02-28 11:53 | SUR.PREOP ---
DR GARSIA ORDERED SCOPE PATCH AND DILAUDID FOR PAIN, HE STATED MAY GIVE ZOFRAN NOW FOR NAUSEA.
[2021-02-28] MEDS: ceFAZolin 2 GM/D5W 50 ML 2 GM/50 ML BAG IVPB (12:13)
[2021-02-28] MEDS: TRANEXAMIC ACID 1,000 MG/10 ML AMPUL 1000 MG IV PUSH (14:30)
--- NOTE | 2021-02-28 14:52 | W.PM.PROC2 ---
Procedure Note - Detailed Date of Procedure 02/28/21 Pre-op Diagnosis Right Hip Fracture Garden 4 Post-op Diagnosis same Procedure Performed Right Total Hip with Amauri Dual Mobility Surgeon Cecil Clayton MD Senior Corporate Accountant Niya Anesthesia general Description of Procedure The patient was identified and brought to the operating room and placed on the operating room table. After general anesthetic she was placed in the left lateral decubitus position presenting the fractured right hip to the surgeon. An axillary roll was placed. All the bony landmarks were padded. The pegboard was used to position her in a stable position. She was and sterilely prepped and draped. Surgical time in and time-out was performed we confirmed this was the correct patient and the correct size. She had received appropriate IV antibiotics as necessary for the procedure. All the equipment was available as necessary for the procedure. Once she was prepped and draped I outlined the surgical incision in the bony landmarks on the skin. Posterior approach was utilized. A 14 cm incision was made in a curvilinear fashion over the posterior 1/3 of the greater trochanter this was along the shaft of the femur and then curving posteriorly towards the posterior superior iliac spine. Incision was made with a 10 blade scalpel. Hemostasis was obtained throughout the case with electrocautery. Blunt dissection down to the fascia was done and the fascia was incised. The greater trochanteric bursa was seen. Just distal to this 1 could palpate the gluteus connor insertion posterior to the incision. The gluteus connor was then incised and spread. Charnley C retractor was placed taking care not to involve the sciatic nerve. The abductor tendons were identified and a Palomo elevator was used to separate them from the superior capsule. A Cobra was then placed in this interval and around the remaining anterior femoral neck. Some of the quadratus femoris was released. And excellent visualization of the capsule was obtained. The capsule was then T'd tag sutures were placed and this open the joint. The femoral head was then visualized able. A corkscrew was placed into the femoral head and it was removed. No acetabular bleeding was seen. The ligamentum had been transected near the acetabular floor. A neck cut was then made using the guide for this system. The femur was then placed anterior to the acetabulum. A sharp Cobra was then placed in the superior aspect of the acetabulum just anterior at around the 2 o'clock position. This was used to help maintain the femoral retraction. The labrum was detached circumferentially around the acetabulum. A distractor was placed posteriorly and this gave 360? of acetabular exposure. The pulmonary are was then removed with electrocautery. There was about a 2 mm ledge down to the acetabular floor. Using a 41 Reamer this was chosen since the femoral head measured 43 we deepened the acetabulum. We then sequentially reamed up to a 48. A 47 trial was placed and this fit perfectly. We then placed a 48 mm acetabular shell. And drilled the superior hole and placed a 6.5 mm by 25 mm screw. This went in and sit flush. We had good finger tight fit to the screw. The acetabular liner was then placed. And we confirmed that this was a good fit. We used the removal device to gently test the acetabular liner to see that we had gotten excellent fit. We also visualized circumferentially around the liner acetabular shell interface. Once we were convinced that the liner was well placed we prepared the femur. A Jeffry was used to find the canal and then the T-handled Reamer was used to open the canal. The broaches were used sequentially up to a 4. We planed the calcar and then did a trial reduction. There was 132 degree 0 neck length was the most appropriate. We had excellent fit and good stability. I was able to flex to 90 abduct to 45? and internally rotate 45? and
[2021-02-28] MEDS: MORPHINE SULFATE (*CRX) 2 MG/ML INJ IV PUSH (17:28)
[2021-02-28] MEDS: SENNA/DOCUSATE SODIUM TABLET 2 TAB PO (17:36)
[2021-02-28] MEDS: LACTATED RINGERS 1,000 ML 100 ML IV CONT (17:36)
[2021-02-28 17:56] LABS: Hematocrit 40.3 % (37.0-47.0); Hemoglobin 13.1 g/dL (12.0-15.0)
[2021-02-28] MEDS: GABAPENTIN 300 MG CAPSULE PO (21:00)
[2021-03-01] VITALS (7 sets, daily range): BP systolic 102–141; BP diastolic 62–77; PULSE 73–996; RESP 14–18; TEMP 36.3–37.6; O2SAT 95–100
[2021-03-01] MEDS: MORPHINE SULFATE (*CRX) 2 MG/ML INJ IV PUSH ×3 (00:15→08:05)
[2021-03-01] MEDS: LACTATED RINGERS 1,000 ML 100 ML IV CONT (03:47)
[2021-03-01 06:49] LABS: Basophils Percent Auto 0.2 % (0.2-1.2); Hematocrit 37.9 % (37.0-47.0); Hemoglobin 12.1 g/dL (12.0-15.0); Immature Granulocyte Absolute 0.06 K/mm3 (0.00-0.031); Immature Granulocyte Percent A 0.5 % (0-0.5); Lymphocytes Absolute Auto 1.71 K/mm3 (0.9-3.2); Mean Corpuscular HGB Conc 31.9 g/dl (32-36); Mean Corpuscular Hemoglobin 29.7 pg (26-34); Mean Corpuscular Volume 93.1 fl (80-100); Mean Platelet Volume 8.9 fl (7.4-10.4); Monocytes Absolute Auto 1.6 K/mm3 (0.1-0.6); Monocytes Percent Auto 12.2 % (2.6-8.5); Neutrophils Absolute Auto 9.8 K/mm3 (1.3-6.7); Neutrophils Percent Auto 74.1 % (45.5-73.1); Platelet Count Result 186 k/mm3 (150-375); Red Blood Count 4.07 M/mm3 (4.2-5.4); Red Cell Distribution Width 12.7 % (11.5-14.5); White Blood Count 13.2 K/mm3 (4.5-10.0)
[2021-03-01 07:01] LABS: Alanine Aminotransferase 30 U/L (4-35); Albumin Level 3.3 g/dL (3.5-5.1); Alkaline Phosphatase 52 U/L (38-126); Anion Gap 8 mmol/L (8-16); Aspartate Amino Transferase 57 U/L (14-36); Bilirubin,Total 0.4 mg/dL (0.2-1.3); Blood Urea Nitrogen 9 mg/dL (7-17); Calcium 8.6 mg/dL (8.4-10.2); Carbon Dioxide 26 mmol/L (22-30); Chloride 108 mmol/L (98-107); Estimated CRCL calculation 77 ml/min; Estimated Glomerular Filt Rate > 60; Glucose 126 mg/dL (65-110); Magnesium 1.8 mg/dL (1.6-2.3); Potassium 3.4 mmol/L (3.4-5.0); Sodium 142 mmol/L (137-145)
[2021-03-01] MEDS: levETIRAcetam 500 MG TABLET 1000 MG PO ×2 (08:10→21:10)
[2021-03-01] MEDS: SENNA/DOCUSATE SODIUM TABLET 2 TAB PO ×2 (08:10→17:09)
[2021-03-01] MEDS: ASPIRIN 325 MG ENTERIC TABLET PO (08:11)
[2021-03-01] MEDS: polyethylene glycoL 3350 17 GM POWD.PACK PO (08:11)
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
[2021-03-01] MEDS: HYDROcodone/acetaminophen (*CRX) 5-325 MG TABLET 2 TAB PO ×2 (10:21→17:08)
[2021-03-01] MEDS: diphenhydrAMINE HCl INJ 50 MG/ML VIAL IV PUSH (13:23)
[2021-03-01] MEDS: HYDROcodone/acetaminophen (*CRX) 10-325 MG TABLET 1 TAB PO ×2 (19:46→23:46)
[2021-03-01] MEDS: KETOROLAC 30 MG/ML VIAL (*BKC) IV PUSH (19:46)
[2021-03-01 19:47] LABS: D Dimer 0.92 ug/mL (<0.48)
[2021-03-01] MEDS: GABAPENTIN 300 MG CAPSULE PO (21:09)
[2021-03-02] MEDS: HYDROcodone/acetaminophen (*CRX) 10-325 MG TABLET 1 TAB PO ×5 (04:13→20:40)
[2021-03-02 06:20] VITALS: BP 117/70; PULSE 98; RESP 16; TEMP 36.7; O2SAT 100
[2021-03-02 07:47] LABS: Alanine Aminotransferase 22 U/L (4-35); Albumin Level 3.1 g/dL (3.5-5.1); Alkaline Phosphatase 53 U/L (38-126); Anion Gap 2 mmol/L (8-16); Aspartate Amino Transferase 38 U/L (14-36); Bilirubin,Total 0.5 mg/dL (0.2-1.3); Blood Urea Nitrogen 10 mg/dL (7-17); Calcium 8.4 mg/dL (8.4-10.2); Carbon Dioxide 32 mmol/L (22-30); Chloride 106 mmol/L (98-107); Estimated CRCL calculation 77 ml/min; Estimated Glomerular Filt Rate > 60; Glucose 112 mg/dL (65-110); Potassium 3.3 mmol/L (3.4-5.0); Sodium 140 mmol/L (137-145)
[2021-03-02 08:11] LABS: Hematocrit 35.4 % (37.0-47.0); Hemoglobin 11.7 g/dL (12.0-15.0); Mean Corpuscular HGB Conc 33.1 g/dl (32-36); Mean Corpuscular Hemoglobin 29.8 pg (26-34); Mean Corpuscular Volume 90.3 fl (80-100); Mean Platelet Volume 8.7 fl (7.4-10.4); Platelet Count Result 182 k/mm3 (150-375); Red Blood Count 3.92 M/mm3 (4.2-5.4); Red Cell Distribution Width 12.9 % (11.5-14.5); White Blood Count 14.8 K/mm3 (4.5-10.0)
[2021-03-02] MEDS: levETIRAcetam 500 MG TABLET 1000 MG PO ×2 (09:16→20:40)
[2021-03-02] MEDS: polyethylene glycoL 3350 17 GM POWD.PACK PO (09:17)
[2021-03-02] MEDS: ASPIRIN 325 MG ENTERIC TABLET PO (09:17)
[2021-03-02] MEDS: SENNA/DOCUSATE SODIUM TABLET 2 TAB PO ×2 (09:17→15:57)
[2021-03-02 09:57] LABS: Hemoglobin A1C 4.9 % (<5.7)
[2021-03-02] MEDS: POTASSIUM CHLORIDE 20 MEQ TABLET PO (11:59)
--- NOTE | 2021-03-02 12:17 | PC.NURSE ---
attempted to straight cath but unable to advance catheter more than a few cm. patient c/o pain with procedure. procedure stopped and Kalyani notified. orders received for urology consult.
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
--- NOTE | 2021-03-02 12:37 | PC.NURSE ---
to CT per bed
--- NOTE | 2021-03-02 13:54 | WPDURCON ---
Assessment and Plan Assessment and plan (1) Acute urinary retention: Code(s): R33.8 - Other retention of urine Status: Acute Assessment and Plan: 56 yo female with acute urinary retention after R hip surgery after fracture. -14 Fr coude placed by me under sterile technique -limit narcotics, anticholinergics, sedatives -aggressive bowel regimen -activity/ambulation as per orthopedics -voiding trial in near future when more ambulatory , having regular BM's Urology Consult Note HPI Date Seen: 03/02/21 Requesting Physician: Kalyani Magallanes PA-C Primary Care Provider: Wilver Oropeza, Consult Narrative Narrative: Bernadette Mckeon is a 56 year old female who is s/p R THR after a fall near her barn. She has been unable to void postop. She denies hematuria, dysuria, frequent UTI. No prior urologic surgery. She denies lynn history of stone disease. She has not had a BM yet. She is working with PT. No prior urinary incontinence episodes. Nursing staff attempted to straight cath, met resistance and stopped. Review of Systems Constitutional: Constitutional: Reports no additional constitutional complaints, Denies fever(s), Denies snoring and Denies weakness Eyes: Eyes: Reports no additional eye complaints ENT: Reports system reviewed and no additional complaints, except as documented, Denies dysphagia, Denies dizziness, Denies dry mouth and Denies ear discharge Respiratory: Respiratory: Reports no additional respiratory complaints, Denies hemoptysis, Denies snoring and Denies wheezing Gastrointestinal: Gastrointestinal: Reports as per HPI, Reports no additional gastrointestinal complaints, Denies dysphagia, Denies loose stools and Denies nausea Genitourinary: Genitourinary: Reports no additional female genitourinary complaints and Reports as per HPI Musculoskeletal: Musculoskeletal: Reports no additional musculoskeletal complaints, Reports as per HPI and Reports arthralgias Integumentary/Breasts: Skin/Breast: Reports system reviewed and no additional complaints, except as docu and Reports as per HPI Neurologic: Reports system reviewed and no additional complaints, except as documented, Reports as per HPI, Denies confusion, Denies dizziness, Denies memory loss and Denies weakness Psychiatric: Psychiatric: Reports no additional psychiatric complaints, Reports as per HPI, Denies confusion, Denies memory loss and Denies mood swings Endocrine: Endocrine: Reports no additional endocrine complaints Hematologic/Lymphatic: Hematologic/Lymphatic: Reports no additional hematologic/lymphatic complaints and Reports as per HPI Allergic/Immunologic: Allergic/Immunologic: Reports no additional allergic/immunologic complaints, Reports as per HPI and Denies wheezing PMFSH Past Medical History Medical History History of stroke Due to CVA at age 17 with right-sided weakness Neurological tumor 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 She did smoke 1 pack per week for about 10 years but quit. She does not do drugs or partake and marijuana. She is a homemaker. She would like to be a full code. She would like her surrogate decision maker to be her daughter, Shamika
--- NOTE | 2021-03-02 14:01 | WPDPROCEDUR ---
Procedures Catheter Insertion (Urinary) Urinary Catheter 1: Date of insertion: 03/02/21 Time of insertion: 14:01 Reason for placing: Acute urinary retention Bladder scan/ultrasound used before catheterization: Yes Estimated amount of urine (mLs): 350 Antiseptic solution prep: Povidone-Iodine Topical anesthesia used: No Catheter type/location: Coude Size ([place]uan): 14 Catheter balloon size (mL): 10 Catheter balloon amount: 10 Results: successfully catheterized-immediate flow Procedure performed: without complications Complications: none immediate Additional comments: nurse was unable to place catheter . 14 Fr coude placed by me, under sterile technique, as she has a mildly inset urethra
[2021-03-02 14:21] VITALS: BP 125/63; PULSE 82; RESP 15; TEMP 36.9; O2SAT 100
[2021-03-02] MEDS: ONDANSETRON INJ 4 MG/2 ML VIAL IV PUSH (18:44)
[2021-03-02] MEDS: GABAPENTIN 300 MG CAPSULE PO (20:41)
[2021-03-02 22:00] VITALS: BP 106/56; PULSE 76; RESP 16; TEMP 36.6; O2SAT 97
[2021-03-02 22:21] VITALS: O2SAT 98
[2021-03-03] MEDS: HYDROcodone/acetaminophen (*CRX) 10-325 MG TABLET 1 TAB PO ×7 (00:43→23:18)
[2021-03-03 06:00] VITALS: BP 110/66; PULSE 75; RESP 16; TEMP 36.3; O2SAT 96
[2021-03-03 06:45] LABS: Basophils Percent Auto 0.2 % (0.2-1.2); Eosinophils Absolute Auto 0.2 K/mm3 (0-0.3); Eosinophils Percent Auto 1.7 % (0-4.4); Hematocrit 31.5 % (37.0-47.0); Hemoglobin 10.2 g/dL (12.0-15.0); Immature Granulocyte Absolute 0.02 K/mm3 (0.00-0.031); Immature Granulocyte Percent A 0.2 % (0-0.5); Lymphocytes Absolute Auto 1.64 K/mm3 (0.9-3.2); Lymphocytes Percent Auto 18.6 % (18.3-44.2); Mean Corpuscular HGB Conc 32.4 g/dl (32-36); Mean Corpuscular Hemoglobin 30.1 pg (26-34); Mean Corpuscular Volume 92.9 fl (80-100); Mean Platelet Volume 9.1 fl (7.4-10.4); Monocytes Absolute Auto 0.8 K/mm3 (0.1-0.6); Monocytes Percent Auto 9.4 % (2.6-8.5); Neutrophils Absolute Auto 6.2 K/mm3 (1.3-6.7); Neutrophils Percent Auto 69.9 % (45.5-73.1); Platelet Count Result 158 k/mm3 (150-375); Red Blood Count 3.39 M/mm3 (4.2-5.4); Red Cell Distribution Width 12.8 % (11.5-14.5); White Blood Count 8.8 K/mm3 (4.5-10.0)
[2021-03-03 07:02] LABS: Alanine Aminotransferase 18 U/L (4-35); Albumin Level 2.9 g/dL (3.5-5.1); Alkaline Phosphatase 58 U/L (38-126); Anion Gap 2 mmol/L (8-16); Aspartate Amino Transferase 30 U/L (14-36); Bilirubin,Total 0.5 mg/dL (0.2-1.3); Blood Urea Nitrogen 11 mg/dL (7-17); Calcium 8.3 mg/dL (8.4-10.2); Carbon Dioxide 33 mmol/L (22-30); Chloride 105 mmol/L (98-107); Estimated CRCL calculation 77 ml/min; Estimated Glomerular Filt Rate > 60; Glucose 102 mg/dL (65-110); Potassium 3.5 mmol/L (3.4-5.0); Sodium 140 mmol/L (137-145)
[2021-03-03 07:56] LABS: Vitamin D 25 Hydroxy 30.9 ng/mL
[2021-03-03 08:00] VITALS: PULSE 75; RESP 16; O2SAT 96
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
[2021-03-03] MEDS: ASPIRIN 325 MG ENTERIC TABLET PO (08:35)
[2021-03-03] MEDS: levETIRAcetam 500 MG TABLET 1000 MG PO ×2 (08:35→20:30)
[2021-03-03] MEDS: SENNA/DOCUSATE SODIUM TABLET 2 TAB PO ×2 (08:36→17:28)
[2021-03-03] MEDS: polyethylene glycoL 3350 17 GM POWD.PACK PO (08:36)
[2021-03-03] MEDS: ONDANSETRON INJ 4 MG/2 ML VIAL IV PUSH (10:22)
--- NOTE | 2021-03-03 12:50 | WPDUROPN2 ---
Progress Note: A&P Assessment and Plan (1) Acute urinary retention: Code(s): R33.8 - Other retention of urine Status: Acute Assessment and Plan: no bm yet. doing well with mcclain -void trial when bowels are moving Subjective Subjective Date/Time Seen: 03/03/21 12:50 no issues with mcclain. ambulating working with PT. no BM yet. Exam Const: General: no acute distress Orientation/consciousness: oriented to person, oriented to place and oriented to time Limitations: no limitations HENMT: Head: normal to inspection : General: Yes bimanual renal exam normal bilaterally Neuro: General: oriented to person, oriented to place and oriented to time Extrem: General: normal to inspection Objective Data Vital Signs Vital Signs: Vital Signs - 24 hr 03/02/21 14:21 03/02/21 22:00 03/02/21 22:21 Temperature 36.9 C 36.6 C Pulse Rate 82 76 Respiratory Rate 15 16 Blood Pressure 125/63 106/56 L Pulse Oximetry 100 97 98 03/03/21 06:00 03/03/21 08:00 Temperature 36.3 C L Pulse Rate 75 75 Respiratory Rate 16 16 Blood Pressure 110/66 Pulse Oximetry 96 96 Intake/Output Intake/Output: Intake & Output 02/28/21 03/01/21 03/02/21 03/03/21 23:59 23:59 23:59 23:59 Intake Total 600 3605 815 480 Output Total 3050 450 350 Balance 600 555 365 130 Meds/Results Medications: Active Medications Generic Name Dose Route Start Last Admin Trade Name Freq PRN Reason Stop Dose Admin Hydrocodone Bitart/Acetaminophen 1 tab 03/01/21 20:00 03/03/21 12:36 Hydrocodone/Acetaminophen (*Crx) 10-325 Mg Tablet PO 1 tab Q4H ARELI Administration Aspirin 325 mg 03/01/21 09:00 03/03/21 08:35 Aspirin 325 Mg Enteric Tablet PO 325 mg QAM ARELI Administration Bisacodyl 5 mg 03/02/21 14:15 Bisacodyl 5 Mg Tablet Ec PO QAM PRN Constipation Gabapentin 300 mg 02/28/21 21:00 03/02/21 20:41 Gabapentin 300 Mg Capsule PO 300 mg HS ARELI Administration Hydromorphone HCl 0.5 mg 03/01/21 11:00 Hydromorphone Hcl Inj (*Crx) 1 Mg/Ml Syr IV PUSH Q4H PRN significant uncontrolled pain Levetiracetam 1,000 mg 02/28/21 09:00 03/03/21 08:35 Levetiracetam 500 Mg Tablet PO 1,000 mg Q12HR ARELI Administration Naloxone HCl 0.1 mg 02/28/21 15:09 Naloxone Hcl 0.4 Mg/Ml Vial IV PUSH Q2M PRN Opiate Reversal Ondansetron HCl 4 mg 02/28/21 02:15 03/03/21 10:22 Ondansetron Inj 4 Mg/2 Ml Vial IV PUSH 4 mg Q4H PRN Administration Nausea Polyethylene Glycol 17 gm 03/01/21 09:00 03/03/21 08:36 Polyethylene Glycol 3350 17 Gm Powd.Pack PO 17 gm QAM ARELI Administration Senna/Docusate Sodium 2 tab 02/28/21 17:00 03/03/21 08:36 Senna/Docusate Sodium Tablet PO 2 tab BID ARELI Administration Radiology Results: ITS Impressions Hip/Pelvis X-Ray 02/28/21 09:16 IMPRESSION: 1. Acute right subcapital femoral neck fracture, impaction. 2. Subacute left superior, inferior rami fractures. Hip X-Ray 02/28/21 15:32 IMPRESSION: 1. Total right hip arthroplasty in near-anatomic alignment. Cervical Spine CT 02/28/21 16:44 IMPRESSION: 1. No acute fracture. 2. Severe cervical spondylosis. Head CT 02/28/21 17:59 IMPRESSION: 1. No acute intracranial abnormality. 2: Large chronic left lacunar infarction. Chest X-Ray 03/01/21 19:29 IMPRESSION: 1: NO ACUTE CARDIOPULMONARY DISEASE. Venous Doppler Study 03/02/21 11:21 IMPRESSION: 1. Patent bilateral lower extremity veins. No evidence of deep venous thrombosis. Chest CTA 03/02/21 13:01 IMPRESSION: 1. No pulmonary embolism. Mild atelectasis. Abdomen/Pelvis CT 03/02/21 13:21 IMPRESSION: 1. Expected postsurgical changes from right total hip arthroplasty. 2. Old fractures of the left inferior and superior pubic rami. Labs Labs: Laboratory Results - last 24 hr 03/03/21 03/03/21 03/03/21 06:26 06:26 06
[2021-03-03 15:44] VITALS: BP 156/99; PULSE 88; RESP 16; TEMP 36.7; O2SAT 99
[2021-03-03] MEDS: GABAPENTIN 300 MG CAPSULE PO (20:30)
[2021-03-03 21:40] VITALS: BP 110/56; PULSE 80; RESP 16; TEMP 36.7; O2SAT 98
[2021-03-03 23:01] VITALS: O2SAT 97
[2021-03-04] MEDS: HYDROcodone/acetaminophen (*CRX) 10-325 MG TABLET 1 TAB PO ×4 (04:26→17:15)
[2021-03-04 06:00] VITALS: BP 111/61; PULSE 72; RESP 16; TEMP 36.3; O2SAT 97
[2021-03-04 06:49] LABS: Hemoglobin 10.2 g/dL (12.0-15.0); Mean Corpuscular HGB Conc 32.9 g/dl (32-36); Mean Corpuscular Hemoglobin 30.9 pg (26-34); Mean Corpuscular Volume 93.9 fl (80-100); Mean Platelet Volume 9.3 fl (7.4-10.4); Platelet Count Result 181 k/mm3 (150-375); Red Cell Distribution Width 12.5 % (11.5-14.5); White Blood Count 6.2 K/mm3 (4.5-10.0)
[2021-03-04 07:03] LABS: Anion Gap 1 mmol/L (8-16); Blood Urea Nitrogen 12 mg/dL (7-17); Calcium 8.3 mg/dL (8.4-10.2); Carbon Dioxide 32 mmol/L (22-30); Chloride 103 mmol/L (98-107); Estimated CRCL calculation 89 ml/min; Estimated Glomerular Filt Rate > 60; Glucose 105 mg/dL (65-110); Potassium 3.6 mmol/L (3.4-5.0); Sodium 136 mmol/L (137-145)
[2021-03-04 08:00] VITALS: PULSE 72; RESP 16; O2SAT 97
[2021-03-04] MEDS: polyethylene glycoL 3350 17 GM POWD.PACK PO (08:28)
[2021-03-04] MEDS: levETIRAcetam 500 MG TABLET 1000 MG PO ×2 (08:28→21:04)
[2021-03-04] MEDS: SENNA/DOCUSATE SODIUM TABLET 2 TAB PO ×2 (08:28→17:12)
[2021-03-04] MEDS: ASPIRIN 325 MG ENTERIC TABLET PO (08:28)
[2021-03-04] MEDS: MAGNESIUM HYDROXIDE SUSP 30 ML UDC PO (08:28)
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
[2021-03-04] MEDS: ONDANSETRON INJ 4 MG/2 ML VIAL IV PUSH (10:35)
--- NOTE | 2021-03-04 11:44 | WPDUROPN2 ---
Progress Note: A&P Assessment and Plan (1) Acute urinary retention: Code(s): R33.8 - Other retention of urine Status: Acute Assessment and Plan: no bm yet. doing well with mcclain -void trial when bowels are moving -may have post op ileus, check abdominal series Subjective Subjective Date/Time Seen: 03/04/21 11:44 no bm yet, has been working with PT. c/o nausea she attributes to pain pills. mcclain patent. NAEO Review of Systems Constitutional: Constitutional: Reports no additional constitutional complaints, Denies fever(s), Denies snoring and Denies weakness Eyes: Eyes: Reports no additional eye complaints ENT: Reports system reviewed and no additional complaints, except as documented, Denies dysphagia, Denies dizziness, Denies dry mouth and Denies ear discharge Respiratory: Respiratory: Reports no additional respiratory complaints, Denies hemoptysis, Denies snoring and Denies wheezing Gastrointestinal: Gastrointestinal: Reports as per HPI, Reports no additional gastrointestinal complaints, Denies dysphagia, Denies loose stools and Denies nausea Genitourinary: Genitourinary: Reports no additional female genitourinary complaints and Reports as per HPI Musculoskeletal: Musculoskeletal: Reports no additional musculoskeletal complaints, Reports as per HPI and Reports arthralgias Integumentary/Breasts: Skin/Breast: Reports system reviewed and no additional complaints, except as docu and Reports as per HPI Neurologic: Reports system reviewed and no additional complaints, except as documented, Reports as per HPI, Denies confusion, Denies dizziness, Denies memory loss and Denies weakness Psychiatric: Psychiatric: Reports no additional psychiatric complaints, Reports as per HPI, Denies confusion, Denies memory loss and Denies mood swings Endocrine: Endocrine: Reports no additional endocrine complaints Hematologic/Lymphatic: Hematologic/Lymphatic: Reports no additional hematologic/lymphatic complaints and Reports as per HPI Allergic/Immunologic: Allergic/Immunologic: Reports no additional allergic/immunologic complaints, Reports as per HPI and Denies wheezing Exam Const: General: cooperative, healthy appearing, comfortable, no acute distress, well developed and alert; No confusion Nutritional Appearance: well nourished Orientation/consciousness: oriented to person, oriented to place, oriented to time, patient oriented x3 and No confusion Limitations: no limitations HENMT: Head: normal to inspection, normocephalic and atraumatic Ears: hearing grossly normal bilaterally and external ears normal General nose exam: Normal external nose present and Normal nares present Face and sinus: normal facial exam Mouth: Yes Normal oral and palatal mucosa present Teeth and gingiva: dentition normal Eyes: General: appearance normal, both eyes and all related structures Neck: Lymphatic: no lymphadenopathy noted Chest: Chest palpation & inspection: normal inspection of the chest Resp: Effort & Inspection: normal respiratory effort and no use of accessory muscles Cardio: Rhythm: regular rhythm GI: Inspection: normal to inspection and non-distended Rectal Exam: deferred : General: Yes bimanual renal exam normal bilaterally and Yes no CVA tenderness External Female Exam: normal external appearance (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
[2021-03-04 14:00] VITALS: BP 115/65; PULSE 65; RESP 20; TEMP 36.1; O2SAT 100
[2021-03-04] MEDS: PANTOPRAZOLE SOD SESQUIHYDRATE 20 MG TAB PO (15:28)
[2021-03-04] MEDS: MAGNESIUM CITRATE 300 ML BTL PO (15:28)
[2021-03-04] MEDS: GABAPENTIN 300 MG CAPSULE PO (21:04)
[2021-03-04 22:00] VITALS: BP 120/66; PULSE 74; RESP 16; TEMP 36.3; O2SAT 100
[2021-03-05 00:39] VITALS: O2SAT 97
[2021-03-05] MEDS: HYDROcodone/acetaminophen (*CRX) 5-325 MG TABLET 1 TAB PO (05:54)
[2021-03-05 06:00] VITALS: BP 137/70; PULSE 96; RESP 16; TEMP 37.1; O2SAT 98
[2021-03-05 07:48] LABS: Hematocrit 31.2 % (37.0-47.0); Hemoglobin 10.1 g/dL (12.0-15.0); Mean Corpuscular HGB Conc 32.4 g/dl (32-36); Mean Corpuscular Volume 92.6 fl (80-100); Mean Platelet Volume 10.3 fl (7.4-10.4); Platelet Count Result 187 k/mm3 (150-375); Red Blood Count 3.37 M/mm3 (4.2-5.4); Red Cell Distribution Width 12.4 % (11.5-14.5); White Blood Count 4.9 K/mm3 (4.5-10.0)
[2021-03-05 07:57] LABS: Anion Gap 5 mmol/L (8-16); Blood Urea Nitrogen 11 mg/dL (7-17); Calcium 8.2 mg/dL (8.4-10.2); Carbon Dioxide 27 mmol/L (22-30); Chloride 102 mmol/L (98-107); Estimated CRCL calculation 89 ml/min; Estimated Glomerular Filt Rate > 60; Glucose 120 mg/dL (65-110); Potassium 3.9 mmol/L (3.4-5.0); Sodium 134 mmol/L (137-145)
[2021-03-05] MEDS: SENNA/DOCUSATE SODIUM TABLET 2 TAB PO (09:41)
[2021-03-05] MEDS: PANTOPRAZOLE SOD SESQUIHYDRATE 20 MG TAB PO (09:41)
[2021-03-05] MEDS: levETIRAcetam 500 MG TABLET 1000 MG PO ×2 (09:41→20:56)
[2021-03-05] MEDS: ASPIRIN 325 MG ENTERIC TABLET PO (09:41)
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
[2021-03-05] MEDS: HYDROcodone/acetaminophen (*CRX) 10-325 MG TABLET 1 TAB PO ×2 (12:28→18:29)
--- NOTE | 2021-03-05 12:44 | PM.PNORT ---
Progress Note: A&P Additional Plan Discussed with RN will encourage fluids and get pt to void cont monitoring BMs Pain management D/C planning for likely d/c in am. Subjective Subjective Date/Time Seen: 03/05/21 12:44 Post Op day: 5 (Right LINNEA for fx) Interval history: Pt has not had BM post-op until today Now with several Caraballo just d/c'ed 20 min ago Exam Extrem: Other: Right Hip Incision C/D/I NV intact distally Leg lengths equal log roll with good smooth motion and relatively NT Flex to 45 degrees passively and then pain pt walks with a circumduction gait secondary to her equinus foot position with antedates her recent admission Objective Data Vital Signs Vital Signs: Vital Signs - 24 hr 03/04/21 14:00 03/04/21 22:00 03/05/21 00:39 Temperature 36.1 C L 36.3 C L Pulse Rate 65 74 Respiratory Rate 20 16 Blood Pressure 115/65 120/66 Pulse Oximetry 100 100 97 03/05/21 06:00 Temperature 37.1 C Pulse Rate 96 Respiratory Rate 16 Blood Pressure 137/70 Pulse Oximetry 98 Intake/Output Intake/Output: Intake & Output 03/02/21 03/03/21 03/04/21 03/05/21 23:59 23:59 23:59 23:59 Intake Total 815 1175 742 570 Output Total 450 470 700 500 Balance 365 705 42 70 Meds/Results Medications: Active Medications Generic Name Dose Route Start Last Admin Trade Name Freq PRN Reason Stop Dose Admin Acetaminophen 650 mg 03/04/21 14:17 Acetaminophen 325 Mg Tablet PO Q6H PRN Mild Pain (1-3) or Fever Hydrocodone Bitart/Acetaminophen 1 tab 03/04/21 14:17 03/05/21 05:54 Hydrocodone/Acetaminophen (*Crx) 5-325 Mg Tablet PO 1 tab Q6H PRN Administration Pain Rated 4-6 Hydrocodone Bitart/Acetaminophen 1 tab 03/04/21 14:17 03/05/21 12:28 Hydrocodone/Acetaminophen (*Crx) 10-325 Mg Tablet PO 1 tab Q6H PRN Administration Pain Rated 7-10 Aspirin 325 mg 03/01/21 09:00 03/05/21 09:41 Aspirin 325 Mg Enteric Tablet PO 325 mg QAM ARELI Administration Bisacodyl 5 mg 03/02/21 14:15 Bisacodyl 5 Mg Tablet Ec PO QAM PRN Constipation Gabapentin 300 mg 02/28/21 21:00 03/04/21 21:04 Gabapentin 300 Mg Capsule PO 300 mg HS ARELI Administration Hydromorphone HCl 0.5 mg 03/01/21 11:00 Hydromorphone Hcl Inj (*Crx) 1 Mg/Ml Syr IV PUSH Q4H PRN significant uncontrolled pain Levetiracetam 1,000 mg 02/28/21 09:00 03/05/21 09:41 Levetiracetam 500 Mg Tablet PO 1,000 mg Q12HR ARELI Administration Naloxone HCl 0.1 mg 02/28/21 15:09 Naloxone Hcl 0.4 Mg/Ml Vial IV PUSH Q2M PRN Opiate Reversal Ondansetron HCl 4 mg 02/28/21 02:15 03/04/21 10:35 Ondansetron Inj 4 Mg/2 Ml Vial IV PUSH 4 mg Q4H PRN Administration Nausea Pantoprazole Sodium 20 mg 03/04/21 14:20 03/05/21 09:41 Pantoprazole Sod Sesquihydrate 20 Mg Tab PO 20 mg QAM ARELI Administration Polyethylene Glycol 17 gm 03/01/21 09:00 03/04/21 08:28 Polyethylene Glycol 3350 17 Gm Powd.Pack PO 17 gm QAM ARELI Administration Senna/Docusate Sodium 2 tab 02/28/21 17:00 03/05/21 09:41 Senna/Docusate Sodium Tablet PO 2 tab BID ARELI Administration Radiology Results: ITS Impressions Hip/Pelvis X-Ray 02/28/21 09:16 IMPRESSION: 1. Acute right subcapital femoral neck fracture, impaction. 2. Subacute left superior, inferior rami fractures. Hip X-Ray 02/28/21 15:32 IMPRESSION: 1. Total right hip arthroplasty in near-anatomic alignment. Cervical Spine CT 02/28/21 16:44 IMPRESSION: 1. No acute fracture. 2. Severe cervical spondylosis. Head CT 02/28/21 17:59 IMPRESSION: 1. No acute intracranial abnormality. 2: Large chronic left lacunar infarction. Chest X-Ray 03/01/21 19:29 IMPRESSION: 1: NO ACUTE CARDIOPULMONARY DISEASE. Venous Doppler Study 03/02/21 11:21 IMPRESSION: 1. Patent bilateral lower extremity veins. No evidence of deep venous thrombosis. Heather
[2021-03-05 14:00] VITALS: BP 115/69; PULSE 87; RESP 14; TEMP 36.3; O2SAT 100
--- NOTE | 2021-03-05 16:00 | PCOTNOTE ---
On 03/05/21, the student, [Maranda STUART], provided care and completed [facility] documentation on this patient. I have reviewed the student's documentation and agree with the findings.
[2021-03-05] MEDS: GABAPENTIN 300 MG CAPSULE PO (20:56)
[2021-03-05 21:58] VITALS: BP 118/78; PULSE 70; RESP 17; TEMP 36.7; O2SAT 98
[2021-03-06 05:43] VITALS: BP 145/99; PULSE 81; RESP 17; TEMP 36.9; O2SAT 98
[2021-03-06] MEDS: ASPIRIN 325 MG ENTERIC TABLET PO (09:41)
[2021-03-06] MEDS: levETIRAcetam 500 MG TABLET 1000 MG PO (09:41)
[2021-03-06] MEDS: SENNA/DOCUSATE SODIUM TABLET 2 TAB PO (09:42)
[2021-03-06] MEDS: PANTOPRAZOLE SOD SESQUIHYDRATE 20 MG TAB PO (09:42)
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
[2021-03-06 14:00] VITALS: BP 135/86; PULSE 86; RESP 16; TEMP 36.1; O2SAT 100
--- NOTE | 2021-03-06 15:19 | PC.NURSE ---
On 03/06/21, the student, Yessenia Thomas[ ], provided care and completed [facility] documentation on this patient. I have reviewed the student's documentation and agree with the findings.
--- NOTE | 2021-03-06 15:37 | WPDUROPN2 ---
Progress Note: A&P Assessment and Plan (1) Acute urinary retention: Code(s): R33.8 - Other retention of urine Status: Acute Assessment and Plan: Appears to have resolved. Will do a bladder scan to confirm post void. If it is <250cc, no further need for urology at this time. Subjective Subjective Date/Time Seen: 03/06/21 15:37 Patient is doing well s/p catheter removal. She reports urinating well without difficulty. She had retention s/p right total hip replacement. She has no urologic concerns at this time. Review of Systems Cardiovascular: Cardiovascular: Denies chest pain Respiratory: Respiratory: Reports no additional respiratory complaints Gastrointestinal: Gastrointestinal: Denies abdominal pain, Denies nausea and Denies vomiting Genitourinary: Genitourinary: Denies hematuria, Denies dysuria, Denies pelvic pain, Denies flank pain, Denies urinary hesitancy and Denies urinary urgency Exam Resp: Effort & Inspection: normal respiratory effort Cardio: Rate: regular rate GI: GI Palp: Yes Soft to palpation and No Tenderness to palpation present (GI) : General: Yes no CVA tenderness Extrem: General: no edema Objective Data Vital Signs Vital Signs: Vital Signs - 24 hr 03/05/21 21:58 03/06/21 05:43 Temperature 98.1 F 98.4 F Pulse Rate 70 81 Respiratory Rate 17 17 Blood Pressure 118/78 145/99 H Pulse Oximetry 98 98 Intake/Output Intake/Output: Intake & Output 03/03/21 03/04/21 03/05/21 03/06/21 23:59 23:59 23:59 23:59 Intake Total 9600 885 6096 360 Output Total 470 357 133 3269 Balance 705 42 750 -640 Meds/Results Medications: Active Medications Generic Name Dose Route Start Last Admin Trade Name Freq PRN Reason Stop Dose Admin Acetaminophen 650 mg 03/04/21 14:17 Acetaminophen 325 Mg Tablet PO Q6H PRN Mild Pain (1-3) or Fever Hydrocodone Bitart/Acetaminophen 1 tab 03/04/21 14:17 03/05/21 05:54 Hydrocodone/Acetaminophen (*Crx) 5-325 Mg Tablet PO 1 tab Q6H PRN Administration Pain Rated 4-6 Hydrocodone Bitart/Acetaminophen 1 tab 03/04/21 14:17 03/05/21 18:29 Hydrocodone/Acetaminophen (*Crx) 10-325 Mg Tablet PO 1 tab Q6H PRN Administration Pain Rated 7-10 Aspirin 325 mg 03/01/21 09:00 03/06/21 09:41 Aspirin 325 Mg Enteric Tablet PO 325 mg QAM ARELI Administration Bisacodyl 5 mg 03/02/21 14:15 Bisacodyl 5 Mg Tablet Ec PO QAM PRN Constipation Gabapentin 300 mg 02/28/21 21:00 03/05/21 20:56 Gabapentin 300 Mg Capsule PO 300 mg HS ARELI Administration Hydromorphone HCl 0.5 mg 03/01/21 11:00 Hydromorphone Hcl Inj (*Crx) 1 Mg/Ml Syr IV PUSH Q4H PRN significant uncontrolled pain Levetiracetam 1,000 mg 02/28/21 09:00 03/06/21 09:41 Levetiracetam 500 Mg Tablet PO 1,000 mg Q12HR ARELI Administration Naloxone HCl 0.1 mg 02/28/21 15:09 Naloxone Hcl 0.4 Mg/Ml Vial IV PUSH Q2M PRN Opiate Reversal Ondansetron HCl 4 mg 02/28/21 02:15 03/04/21 10:35 Ondansetron Inj 4 Mg/2 Ml Vial IV PUSH 4 mg Q4H PRN Administration Nausea Pantoprazole Sodium 20 mg 03/04/21 14:20 03/06/21 09:42 Pantoprazole Sod Sesquihydrate 20 Mg Tab PO 20 mg QAM ARELI Administration Polyethylene Glycol 17 gm 03/01/21 09:00 03/06/21 09:43 Polyethylene Glycol 3350 17 Gm Powd.Pack PO Not Given QAM ARELI Senna/Docusate Sodium 2 tab 02/28/21 17:00 03/06/21 09:42 Senna/Docusate Sodium Tablet PO 2 tab BID ARELI Administration Radiology Results: ITS Impressions Hip/Pelvis X-Ray 02/28/21 09:16 IMPRESSION: 1. Acute right subcapital femoral neck fracture, impaction. 2. Subacute left superior, inferior rami fractures. Cervical Spine CT 02/28/21 16:44 IMPRESSION: 1. No acute fracture. 2. Severe cervical spondylosis. Head CT 02/28/21 17:59 IMPRESSION: 1. No acute intracranial abnormality. 2: Large chronic left lacunar i
--- NOTE | 2021-03-06 15:44 | PCOTNOTE ---
On 03/06/21, the student, [ Maranda STUART], provided care and completed [facility] documentation on this patient. I have reviewed the student's documentation and agree with the findings.
== END 2021-03-06 16:40 | disposition home health service (06) | DRG 956 ==
LOC: ANHED 02:15 → ANH3MEDSUR 06:56
PROVIDERS: Orthopaedic Surgery; Specialist; Admitting Provider Internal Medicine; Emergency Provider Emergency Medicine; PCP Internal Medicine; Visit Provider Physician Assistant
PROC: 0SR90JZ Replacement of Right Hip Joint with Synthetic Substitute, Open Approach (ICD-10-PCS; CPT 27130; principal; 2021-02-28 12:00)
DX: S72.011A Unspecified intracapsular fracture of right femur, initial encounter for closed fracture (principal); S32.591A Other specified fracture of right pubis, initial encounter for closed fracture; I69.351 Hemiplegia and hemiparesis following cerebral infarction affecting right dominant side; Z23 Encounter for immunization; N99.89 Other postprocedural complications and disorders of genitourinary system; R33.8 Other retention of urine; N39.498 Other specified urinary incontinence; I45.10 Unspecified right bundle-branch block; W18.39XA Other fall on same level, initial encounter; M79.2 Neuralgia and neuritis, unspecified; Z90.710 Acquired absence of both cervix and uterus; Z87.820 Personal history of traumatic brain injury; Z87.891 Personal history of nicotine dependence
CPT/HCPCS: 36415; 70450; 71045; 71275; 72125; 73502; 74018; 74176; 80048; 80076; 82306; 83036; 83735; 85014; 85018; 85025; 85027; 85380; 85610; 86850; 86900; 86901; 90471; 90653; 93005; 93306; 93970; 96361; 96374; 97110; 97116; 97162; 97166; 97530; 97535; 99285; A9270; C1776; G0008; J0131; J0171; J0690; J1100; J1170; J1200; J1885; J2250; J2270; J2370; J2405; J2704; J2710; J3010; J7120; Q9967

== ENCOUNTER 2021-03-29 16:52 | Emergency (ER) | payer OTHER, SELFPAY ==
--- NOTE | ~2021-03-29 | XR_ITS ---
XR chest 1V portable DATE: 03/29/2021 17:27 INDICATION: Cough TECHNIQUE: Portable AP chest on 03/29/2021 at 1715 hours COMPARISON: 03/02/2021 CT pulmonary scan 03/01/2021 portable AP chest FINDINGS: Heart size is within normal range. No pulmonary infiltrate or consolidation, pleural effusi on or pulmonary vascular congestion or pneumothorax is detected. No pleural effusion or pulmonary vas cular congestion or pneumothorax. There is thoracolumbar scoliosis and diffuse osteopenia. IMPRESSION: No active cardiopulmonary disease Reviewed, dictated and finalized at location B. [facility]
--- NOTE | ~2021-03-29 | CT_ITS ---
EXAMINATION: CT abdomen pelvis w con DATE: 03/29/2021 20:04 INDICATION: Abdominal pain, nausea, vomiting and diarrhea. TECHNIQUE: Computed tomography (CT) of the abdomen and pelvis was performed with 100 mL Omnipaque-350 intravenous contrast. Automated exposure control and iterative reconstruction technique were employe d. The dose-length product was 363.12 mGy-cm. COMPARISON: 03/02/2021 FINDINGS: Patchy groundglass opacities at the bilateral lung bases consistent with COVID pneumonia. Heart size is normal. No pericardial or pleural effusion. Bilateral breast implants. Liver, gallbladder, spleen, pancreas, bilateral adrenal glands and kidneys are normal. There is mild colonic diverticulosis with a sigmoid predominance. There is no adjacent inflammatory change to suggest diverticulitis. Small b owel and appendix are normal. Bladder is normal. The uterus is not identified and has likely been chayito gically resected. No free intraperitoneal gas or fluid. No pathologically enlarged abdominal or pelvi c lymphadenopathy. Thoracolumbar levoscoliosis with moderate spondylosis. Right total hip arthroplast y. Chronic ununited left superior and inferior pubic rami fractures. IMPRESSION: 1. No acute intra-abdominal/pelvic process. 2. Patchy bibasilar lung disease consistent with COVID pneumonia. Reviewed, dictated and finalized at location . [employer] ASSIST[employer]
[2021-03-29 16:55] VITALS: BP 152/84; PULSE 82; RESP 20; TEMP 38.3; O2SAT 98
[2021-03-29 17:18] LABS: Basophils Percent Auto 0.4 % (0.2-1.2); Hematocrit 39.6 % (37.0-47.0); Hemoglobin 12.8 g/dL (12.0-15.0); Immature Granulocyte Absolute 0.01 K/mm3 (0.00-0.031); Immature Granulocyte Percent A 0.4 % (0-0.5); Lymphocytes Absolute Auto 0.92 K/mm3 (0.9-3.2); Lymphocytes Percent Auto 37.6 % (18.3-44.2); Mean Corpuscular HGB Conc 32.3 g/dl (32-36); Mean Corpuscular Hemoglobin 29.2 pg (26-34); Mean Corpuscular Volume 90.2 fl (80-100); Mean Platelet Volume 9.4 fl (7.4-10.4); Monocytes Absolute Auto 0.5 K/mm3 (0.1-0.6); Monocytes Percent Auto 18.4 % (2.6-8.5); Neutrophils Absolute Auto 1.1 K/mm3 (1.3-6.7); Neutrophils Percent Auto 43.2 % (45.5-73.1); Platelet Count Result 101 k/mm3 (150-375); Red Blood Count 4.39 M/mm3 (4.2-5.4); Red Cell Distribution Width 12.8 % (11.5-14.5); White Blood Count 2.5 K/mm3 (4.5-10.0)
[2021-03-29] MEDS: SODIUM CHLORIDE 0.9% IV 1,000 ML 999 ML IV CONT (17:18)
[2021-03-29 17:29] LABS: Prothrombin Time 13.3 Seconds (11.1-14.7)
[2021-03-29 17:30] LABS: Partial Thromboplastin Time 26.5 SECONDS (22.3-36.8)
[2021-03-29 17:55] VITALS: BP 148/77; PULSE 73; RESP 16; O2SAT 98
[2021-03-29 17:58] LABS: Lactate Dehydrogenase 649 U/L (313-618)
[2021-03-29 18:21] VITALS: BP 134/78; PULSE 76; RESP 18; TEMP 36.9; O2SAT 100
[2021-03-29 18:39] LABS: Alanine Aminotransferase 83 U/L (4-35); Albumin Level 4.7 g/dL (3.5-5.1); Alkaline Phosphatase 88 U/L (38-126); Anion Gap 11 mmol/L (8-16); Aspartate Amino Transferase 109 U/L (14-36); Bilirubin,Total 0.4 mg/dL (0.2-1.3); Blood Urea Nitrogen 9 mg/dL (7-17); CRP < 0.5 mg/dL (<1.0); Calcium 9.2 mg/dL (8.4-10.2); Carbon Dioxide 25 mmol/L (22-30); Chloride 99 mmol/L (98-107); Estimated CRCL calculation 89 ml/min; Estimated Glomerular Filt Rate > 60; Glucose 103 mg/dL (65-110); Potassium 3.6 mmol/L (3.4-5.0); Sodium 135 mmol/L (137-145)
[2021-03-29 18:55] LABS: Lipase 118 U/L (23-300)
[2021-03-29 19:00] VITALS: BP 145/79; PULSE 73; RESP 18; O2SAT 100
--- NOTE | 2021-03-29 19:00 | PC.NURSE ---
assuming care of pt.
--- NOTE | 2021-03-29 20:44 | ED.GENADULT ---
HPI - General Adult General Chief complaint: Unspecified Stated complaint: dehydration Time Seen by Provider: 03/29/21 17:00 Source: RN notes reviewed History of Present Illness HPI narrative: Patient presents emergency department from home for weakness. Patient states she tested positive for COVID-19 on 03/24/2021. She states that she has been having decreased appetite with nausea during that time with last episode of emesis yesterday she has been feeling generally weak she states she has had a cough that has been nonproductive as well is a low-grade fever she denies any chest pain or shortness of breath denies diarrhea states she has had generalized abdominal pain described as cramping patient states she did not receive the Covid vaccination Related Data Home Medications Medication Instructions Recorded Confirmed gabapentin 300 mg PO HS 03/06/19 02/28/21 levetiracetam [Keppra] 1,000 mg PO BID 03/06/19 02/28/21 Caltrate 600 plus D 600 mg BID 02/28/21 02/28/21 Allergies Allergy/AdvReac Type Severity Reaction Status Date / Time No Known Allergies Allergy Verified 03/29/21 17:02 Review of Systems Review of Systems: Gen.: Denies fevers or chills ENT: Denies congestion Respiratory: Denies shortness of breath ports cough CV: Denies chest pain or palpitations GI: See HPI Musculoskeletal: Denies back pain or muscle pain Neuro: Denies numbness, tingling, weakness or focal weakness Skin: Denies rash Except as documented, all other systems reviewed and negative PMFSH Past Medical History Medical History History of stroke Due to CVA at age 17 with right-sided weakness Neurological tumor 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 She did smoke 1 pack per week for about 10 years but quit. She does not do drugs or partake and marijuana. She is a homemaker. She would like to be a full code. She would like her surrogate decision maker to be her daughterShamika Smoking status: Former smoker Alcohol intake: never Substance use: never Substance use type: does not use Gender identity (if verbalized by the patient): Female Sexual Orientation (if Verbalized by the Patient): Straight or Heterosexual Spiritual care concerns: No Exam Narrative: APPEARANCE: No acute distress, nontoxic, resting in bed EYES: EOMI HEENT: Normocephalic, atraumatic, OMM RESPIRATORY: No respiratory distress Clear to auscultation bilaterally with no rhonchi wheezing or rales. CARDIOVASCULAR: Regular rate and rhythm without murmurs rubs or gallops. ABDOMINAL: Soft nondistended diffusely tender palpation no rebound or guarding MUSCULOSKELETAl: Moves all extremities. No clubbing, cyanosis or edema. NEURO: Awake and alert. Following commands, speech normal, no focal deficits SKIN:: Warm, dry. No rashes lesions or abrasions PSYCHIATRIC: Normal affect/mood, Course Course Emergency Course: Patient able to get up and ambulate in the emergency department with pulse ox in the mid upper 90s Vital Signs Vital signs: Vital Signs Temperature 100.9 F H 03/29/21 16:55 Pulse Rate 82 03/29/21 16:55 Respiratory Rate 20 03/29/21 16:55 Blood Pressure 152/84 H 03/29/21 16:55 Pulse Oximetry
[2021-03-29] MEDS: ONDANSETRON INJ 4 MG/2 ML VIAL IV PUSH (20:50)
[2021-03-29 21:15] VITALS: BP 140/79; PULSE 88; RESP 18; O2SAT 98
[2021-03-29 21:52] VITALS: BP 140/79; PULSE 74; RESP 18; O2SAT 99
== END 2021-03-29 21:52 | disposition home or self-care (01) ==
PROVIDERS: Emergency Provider Emergency Medicine; PCP Internal Medicine
DX: U07.1 COVID-19 (principal); J12.82 Pneumonia due to coronavirus disease 2019; R53.1 Weakness; R11.2 Nausea with vomiting, unspecified; I69.951 Hemiplegia and hemiparesis following unspecified cerebrovascular disease affecting right dominant side; Z87.820 Personal history of traumatic brain injury; Z87.891 Personal history of nicotine dependence
CPT/HCPCS: 36415; 71045; 74177; 80053; 83615; 83690; 85025; 85610; 85730; 86140; 96361; 96365; 96375; 99284; J0131; J2405; J7030; Q9967

== ENCOUNTER 2022-07-18 14:22 | Outpatient (CLI) | payer OTHER, SELFPAY ==
--- NOTE | ~2022-07-18 | XR_ITS ---
XR lumbar spine 2-3V 07/18/2022 14:47 Indication: Radiculopathy and chronic low back pain Procedure: 3 views lumbar spine Comparison: 12/29/2019 Findings: Stable levoscoliosis of the lumbar spine centered at L2. Vertebral body heights are maintai john. There is disc narrowing at L2-3 through L4-5. There is lower lumbar facet hypertrophy. No acute fracture, subluxation or spondylolisthesis. There is a right total hip arthroplasty. Impression: 1: Mild-moderate lumbar spondylosis with levoscoliosis. Reviewed, dictated and finalized at location L. Impression: 1: Mild-moderate lumbar spondylosis with levoscoliosis.
== END 2022-07-18 14:23 | disposition home or self-care (01) ==
PROVIDERS: PCP Internal Medicine; Visit Provider Pain Medicine Interventional Pain Medicine
DX: M47.816 Spondylosis without myelopathy or radiculopathy, lumbar region (principal); M41.86 Other forms of scoliosis, lumbar region; Z51.81 Encounter for therapeutic drug level monitoring; Z79.891 Long term (current) use of opiate analgesic; Z13.89 Encounter for screening for other disorder
CPT/HCPCS: 72100

== ENCOUNTER 2023-10-24 12:03 | Outpatient (CLI) | payer MEDICARE, SELFPAY ==
--- NOTE | ~2023-10-24 | MM_ITS ---
EXAMINATION: MM scrn preston implant BI w tess HISTORY: Screening mammogram TECHNIQUE: Craniocaudal and mediolateral oblique 3-D tomosynthesis images with implant displacement a nd synthetic 2-D images were generated. Craniocaudal and mediolateral oblique views of the breasts wi thout implant displacement were obtained using full field digital mammography. CAD analysis was submi tted and interpreted. COMPARISON: No prior mammogram is available for comparison at this institution. BREAST PARENCHYMAL COMPOSITION: Not dense: There are scattered areas of fibroglandular density. FINDINGS: There is no evidence of suspicious mass, calcification, or architectural distortion to sugg est malignancy in either breast. There has been no suspicious interval change. IMPRESSION: 1. No mammographic evidence of malignancy. 2. Recommend routine screening mammography in one year. BI-RADS Category 1: Negative Reviewed, dictated and finalized at location B.
== END 2023-10-24 12:04 | disposition home or self-care (01) ==
PROVIDERS: PCP Internal Medicine; Visit Provider Internal Medicine
DX: Z12.31 Encounter for screening mammogram for malignant neoplasm of breast (principal)
CPT/HCPCS: 77063; 77067

== ENCOUNTER 2024-02-18 13:52 | Outpatient (CLI) | payer MEDICARE, SELFPAY ==
--- NOTE | ~2024-02-18 | DEXA_ITS ---
Bone Density Report Name: NINFA FRIEND Age: 59 Sex: Female Ethnicity: White Date of : 1965 Indication: postmenopausal; screening for osteoporosis; height loss; prior fracture; hysterectomy; Referring Provider: TERRY, JANNY Jacobs Study: Bone densitometry was performed. Exam Date: February 18, 2024 Accession number: [id number] Bone Density: Region BMD T-score Z-score Classification AP Spine(L1-L4) 0.759 -2.6 -1.2 Osteoporosis Femoral Neck (Left) 0.564 -2.6 -1.3 Osteoporosis Total Hip (Left) 0.703 -2.0 -1.0 Osteopenia World Health Organization criteria for BMD impression classify patients as: Normal (T-score at or above -1.0), Osteopenia (T-score between -1.0 and -2.5), or Osteoporosis (T-score at or below -2.5). 10-year Fracture Risk: FRAX not reported because: Some T-score for Spine Total or Hip Total or Femoral Neck at or below -2.5 Prior hip or vertebral fracture Clinical Information Provided by Patient: Have had a previous hip or vertebral fracture Has had a low trauma fracture Has used the following medications: Vitamin D, Calcium Has the following medical conditions: Hysterectomy Patient maximum height was 68 Menopause Age: 38 No regular weight bearing exercise Drinks caffeinated beverages Onset of menses at age 11 Number of children 1 Impression: The patient has established osteoporosis, based on the Total Spine T-score and the existence of a prior fracture. The patient has risk factors, including: previous fracture. Discussion: HIGH RISK OF FRACTURE. BONE DENSITY IS UNDESIRABLY LOW AT ONE OR MORE SKELETAL SITES, CONSISTENT WITH POSTMENOPAUSAL OSTEOPOROSIS. This patient's lowest T-score, in a patient who has previously fractured, meets the World Health Organization's (WHO) criteria for severe osteoporosis. In untreated patients, the risk of osteoporotic fracture increases approximately two-fold for each 1.0 SD decrease in T-score. Low bone density is not the only risk factor for fracture; also consider factors such as patient's age, frailty or poor health, risk of falling, risk of injury, previous osteoporotic fracture, family history of osteoporosis, cigarette smoking, low body weight, etc. Not everyone with low bone mineral density has osteoporosis; osteomalacia and other metabolic bone disorders should also be considered. Patients who have osteoporosis should be evaluated for specific diseases and conditions (secondary causes) that may cause or contribute to bone loss. The [place] Association of Clinical Endocrinologists (AACE) and National Osteoporosis Foundation (NOF) recommend pharmacologic intervention for all postmenopausal women with a previous hip or vertebral fracture and a T-score in this range. The patient should follow a healthful lifestyle (good nutrition with adequate calcium and vitamin D, and appropriate weight-bearing exercise). Follow-Up: Consider a repeat BMD and Vertebral Fracture Assessment (VFA) exam in 2 years or sooner if medically necessary, to reassess this patient's status. Reported by: ADDY on 02/18/2024 2:42:00 PM. Reviewed, dictated and finalized at location A. [facility]
== END 2024-02-18 13:53 | disposition home or self-care (01) ==
LOC: ANHIMG 13:54
PROVIDERS: PCP Internal Medicine; Visit Provider Internal Medicine
DX: Z78.0 Asymptomatic menopausal state (principal); M81.0 Age-related osteoporosis without current pathological fracture; M85.852 Other specified disorders of bone density and structure, left thigh
CPT/HCPCS: 77080

== ENCOUNTER 2024-03-11 13:18 | Outpatient (CLI) | payer MEDICARE, SELFPAY ==
--- NOTE | ~2024-03-11 | XR_ITS ---
3 VIEWS LUMBAR SPINE Ordering provider: Hermann Brenner MD History: . PT STATES HX OF SCOLIOSIS . Comparison: . 07 18 2022 FINDINGS: VERTEBRAL BODIES: Levoscoliosis. No visible fracture or subluxation. Opacities projected over the le ft iliac bone which may be in the fecal material. Proper images of the pelvis are advised. DISK SPACES: narrowing of the disc L5-S1.. SOFT TISSUES: Normal. Right hip arthroplasty. Right sacroiliitis. IMPRESSION: No acute osseous abnormality lumbar spine. Levoscoliosis. Degenerative disc disease at the level of L5-S1. Reviewed, dictated and finalized at location A. [facility] [employer]
== END 2024-03-11 13:19 | disposition home or self-care (01) ==
PROVIDERS: PCP Internal Medicine; Visit Provider Pain Medicine Interventional Pain Medicine
DX: M54.16 Radiculopathy, lumbar region (principal); M54.17 Radiculopathy, lumbosacral region; Z79.891 Long term (current) use of opiate analgesic; Z13.89 Encounter for screening for other disorder; M51.379 Other intervertebral disc degeneration, lumbosacral region without mention of lumbar back pain or lower extremity pain
CPT/HCPCS: 72100